=== PATIENT | male | born 1950 | race Caucasian/White ===

== ENCOUNTER → 2021-05-20 16:37 | Outpatient (CLI) | payer MEDICARE, OTHER, SELFPAY ==
--- NOTE | 2021-05-20 16:42 | DI.RAD.S_ITS ---
PROCEDURE: XR HAND LT MIN 3V INDICATIONS: left thumb TECHNIQUE: 3 views of the hand(s) acquired. COMPARISON: None. FINDINGS: Bones: No acute fracture identified. There are numerous interphalangeal marginal lucencies. Additional lucencies at the distal ulna, and carpus raising possibility of erosions. Severe CMC and triscaphe joint degeneration. Diffuse interphalangeal degenerative joint disease. Chronic appearing ossicle projects adjacent to the base of the middle finger proximal phalanx. Soft tissues: No suspicious soft tissue calcifications. IMPRESSION: No definite fracture identified. Diffuse osteoarthritis as above Numerous marginal lucencies suggestive of erosions. Please correlate clinically. If the patient's pain or other symptoms persist, consider further evaluation with MRI Dictated by: Joe Ash M.D. on 05/20/2021 at 17:16 Approved by: Joe Ash M.D. on 05/20/2021 at 17:18
== END ==
PROVIDERS: PCP Internal Medicine; Referring Provider Internal Medicine; Visit Provider Internal Medicine
DX: M19.042 Primary osteoarthritis, left hand (principal); M18.12 Unilateral primary osteoarthritis of first carpometacarpal joint, left hand
CPT/HCPCS: 73130

== ENCOUNTER → 2021-05-25 06:44 | Outpatient (CLI) | payer MEDICARE, OTHER, SELFPAY ==
[2021-05-25 08:06] LABS: Add Manual Diff / Slide Review NO; Basophils Absolute Auto 100 /uL (0-100); Basophils Percent Auto 1.1 % (0-2); Eosinophils Absolute Auto 200 /uL (0-450); Hematocrit 41.5 % (41-53); Lymphocytes Absolute Auto 1400 /uL (1100-4500); Lymphocytes Percent Auto 19.4 % (25-40); Mean Corpuscular HGB Conc 33.8 % (30-36); Mean Corpuscular Hemoglobin 29.4 PG (26-34); Monocytes Absolute Auto 700 /uL (0-900); Monocytes Percent Auto 9.1 % (3-14); Neutrophils Absolute Auto 5000 /uL (1500-7000); Neutrophils Percent Auto 67.4 % (50-75); Platelet Count 174 X10^3/uL (150-400); Red Blood Cell Count 4.77 X10^6/uL (4.5-5.9); Red Cell Distribution Width 13.5 % (11.6-14.8); White Blood Cell Count 7.5 X10^3/uL (4.5-11.0)
[2021-05-25 08:24] LABS: Alanine Aminotransferase 31 IU/L (<50); Albumin 4.6 g/dL (3.5-5.0); Albumin Globulin Ratio 1.5 (1.0-2.8); Alkaline Phosphatase 90 U/L (38-126); Aspartate Aminotransferase 29 IU/L (17-59); Bilirubin Total 0.7 mg/dL (0.2-1.3); Blood Urea Nitrogen 24 mg/dL (9-20); C-Reactive Protein Quant < 0.5 mg/dL (<1.0); Calcium 9.3 mg/dL (8.4-10.2); Carbon Dioxide 29 mmol/L (22-32); Chloride 105 mmol/L (98-107); Estimated Glomerular Filt Rate > 60.0 mL/min (>60); Globulin 3.1 g/dL (1.7-4.1); Glucose 91 mg/dL (80-110); HEMOLYSIS < 15 (0-50); Potassium 3.8 mmol/L (3.4-5.1); Sodium 140 mmol/L (137-145); Total Protein 7.7 g/dL (6.3-8.2)
[2021-05-25 08:39] LABS: Free T4, Direct Thyroxine 0.81 ng/dL (0.78-2.19)
[2021-05-25 08:43] LABS: Erythrocyte Sedimentation Rate 38 MM/HR (0-15)
[2021-05-25 08:52] LABS: Prostate Specific Antigen Scrn 0.831 ng/mL (0.1-4.0)
[2021-05-25 08:53] LABS: Thyroid Stimulating Hormone 2.09 uIU/mL (0.47-4.68)
== END ==
PROVIDERS: PCP Internal Medicine; Referring Provider Internal Medicine; Visit Provider Internal Medicine
DX: I10 Essential (primary) hypertension (principal); E78.2 Mixed hyperlipidemia; Z12.5 Encounter for screening for malignant neoplasm of prostate; R53.83 Other fatigue
CPT/HCPCS: 36415; 80053; 84439; 84443; 85025; 85651; 86140; G0103

== ENCOUNTER → 2022-07-07 10:20 | Outpatient (CLI) | payer MEDICARE, OTHER, SELFPAY ==
--- NOTE | 2022-07-07 10:23 | DI.RAD.S_ITS ---
PROCEDURE: XR HIP W PEL IF DONE RT 2V INDICATIONS: hip pain TECHNIQUE: AP pelvis with lateral view(s) of the right hip(s). COMPARISON: None. FINDINGS: Bones: No fractures or dislocations. Pelvic ring appears intact. Severe joint space narrowing of both hips. Bilateral hip joint spurring, subchondral sclerosis, right hip subchondral cystic change. Soft tissues: The visualized bowel gas pattern is normal. No suspicious soft tissue calcifications. IMPRESSION: Severe degenerative changes of both hips. Dictated by: Andrzej Lott M.D. on 07/07/2022 at 16:41 Approved by: Andrzej Lott M.D. on 07/07/2022 at 16:44
--- NOTE | 2022-07-07 10:23 | DI.RAD.S_ITS ---
PROCEDURE: XR KNEE RT 3V INDICATIONS: knee pain TECHNIQUE: 3 views of the knee were acquired. COMPARISON: None. FINDINGS: Bones: No fractures or dislocations. No suspicious bony lesions. Mild lateral compartment spurring. Mild-moderate medial and patellofemoral compartment narrowing and spurring. Soft tissues: No joint effusion. Chondrocalcinosis is present. IMPRESSION: 1. No acute fracture visualized. 2. Tricompartmental degenerative changes of the knee. 3. Chondrocalcinosis is present, a nonspecific finding that can be seen in the setting of pyrophosphate arthropathy, osteoarthritis, chronic repetitive trauma, hyperparathyroidism/renal osteodystrophy, or progressive systemic sclerosis. Dictated by: Andrzej Lott M.D. on 07/07/2022 at 16:37 Approved by: Andrzej Lott M.D. on 07/07/2022 at 16:40
[2022-07-07 12:31] LABS: Add Manual Diff / Slide Review NO; Basophils Absolute Auto 100 /uL (0-100); Basophils Percent Auto 0.9 % (0-2); Eosinophils Absolute Auto 100 /uL (0-450); Eosinophils Percent Auto 1.6 % (2-4); Hematocrit 40.9 % (41-53); Lymphocytes Absolute Auto 1400 /uL (1100-4500); Lymphocytes Percent Auto 18.1 % (25-40); Mean Corpuscular HGB Conc 34.1 % (30-36); Mean Corpuscular Hemoglobin 29.4 PG (26-34); Mean Corpuscular Volume 86.2 fL (80-100); Monocytes Absolute Auto 600 /uL (0-900); Monocytes Percent Auto 8.2 % (3-14); Neutrophils Absolute Auto 5600 /uL (1500-7000); Neutrophils Percent Auto 71.2 % (50-75); Platelet Count 185 X10^3/uL (150-400); Red Blood Cell Count 4.75 X10^6/uL (4.5-5.9); Red Cell Distribution Width 13.1 % (11.6-14.8); White Blood Cell Count 7.8 X10^3/uL (4.5-11.0)
[2022-07-07 12:48] LABS: Alanine Aminotransferase 27 IU/L (<50); Albumin 4.3 g/dL (3.5-5.0); Albumin Globulin Ratio 1.2 (1.0-2.8); Alkaline Phosphatase 97 U/L (38-126); Aspartate Aminotransferase 26 IU/L (17-59); BUN Creatinine Ratio 21.1 (6-22); Bilirubin Total 0.7 mg/dL (0.2-1.3); Blood Urea Nitrogen 16 mg/dL (9-20); C-Reactive Protein Quant < 0.5 mg/dL (<1.0); Calcium 9.1 mg/dL (8.4-10.2); Carbon Dioxide 32 mmol/L (22-32); Chloride 100 mmol/L (98-107); Cholesterol 124 mg/dL (140-199); Creatine Kinase 57 U/L (55-170); Estimated Glomerular Filt Rate > 60 mL/min (>60); Globulin 3.5 g/dL (1.7-4.1); Glucose 87 mg/dL (80-110); HDL Cholesterol 32 mg/dL (40-60); HEMOLYSIS < 15 (0-50); LDL Cholesterol Calculated 67 mg/dL (<100); Potassium 3.9 mmol/L (3.4-5.1); Sodium 141 mmol/L (137-145); Total Protein 7.8 g/dL (6.3-8.2); Triglycerides 124 mg/dL (35-150)
[2022-07-07 13:30] LABS: Erythrocyte Sedimentation Rate 14 MM/HR (0-15)
[2022-07-07 13:37] LABS: TSH w/ Reflex to FT4 1.27 uIU/mL (0.47-4.68)
== END ==
PROVIDERS: PCP Internal Medicine; Referring Provider Internal Medicine; Visit Provider Internal Medicine
DX: E78.2 Mixed hyperlipidemia (principal); I10 Essential (primary) hypertension; M11.261 Other chondrocalcinosis, right knee; M25.561 Pain in right knee; M25.551 Pain in right hip
CPT/HCPCS: 36415; 73502; 73562; 80053; 80061; 82550; 84443; 85025; 85651; 86140

== ENCOUNTER → 2022-09-28 08:24 | Outpatient (CLI) | payer MEDICARE, OTHER, SELFPAY ==
[2022-09-28 09:13] LABS: D Dimer 935 ng/ml (<500)
[2022-09-28 09:25] LABS: Alanine Aminotransferase 29 IU/L (<50); Albumin 4.4 g/dL (3.5-5.0); Albumin Globulin Ratio 1.3 (1.0-2.8); Alkaline Phosphatase 81 U/L (38-126); Aspartate Aminotransferase 26 IU/L (17-59); BUN Creatinine Ratio 22.2 (6-22); Bilirubin Total 0.7 mg/dL (0.2-1.3); Blood Urea Nitrogen 16 mg/dL (9-20); Carbon Dioxide 29 mmol/L (22-32); Chloride 102 mmol/L (98-107); Estimated Glomerular Filt Rate > 60 mL/min (>60); Globulin 3.5 g/dL (1.7-4.1); Glucose 95 mg/dL (80-110); HEMOLYSIS < 15 (0-50); Potassium 4.1 mmol/L (3.4-5.1); Sodium 142 mmol/L (137-145); Total Protein 7.9 g/dL (6.3-8.2)
[2022-09-28 09:28] LABS: Hemoglobin A1C% w Est Avg Glu 5.3 % (4.0-6.0)
== END ==
PROVIDERS: PCP Internal Medicine; Referring Provider Family Medicine; Visit Provider Family Medicine
DX: I10 Essential (primary) hypertension (principal); I87.2 Venous insufficiency (chronic) (peripheral)
CPT/HCPCS: 36415; 80053; 83036; 85379

== ENCOUNTER → 2022-11-07 06:36 | Outpatient (CLI) | payer MEDICARE, OTHER, SELFPAY ==
--- NOTE | 2022-11-07 06:37 | DI.ECHO.S_ITS ---
[facility] +---------+ : : [address] : : : : [id number] : : : : Phone: [phone]+ Echocardiogram Report + + :Name: NOLAN ASH Study Date: 11/07/2022 Height: 70 in : :[facility] ReadingLocation: Weight: 212 lb : : Gender: Male BSA: 2.1 m2 : :: 1950 Age: 72 yrs BP: 149/84 mmHg: :Reason For Study: ATRIAL FIBRILLATION : :Ordering Physician: WILY CAMPOSPerformed By: Renetta Vega : :Referring: WILY CAMPOS : + + Interpretation Summary 1) Normal left ventricular thickness, size, wall motion, and systolic function (EF 55-60%). 2) Normal right ventricular size and function. 3) No significant valvular abnormalities. 4) No prior Echo available for comparison. Procedure: A two-dimensional transthoracic echocardiogram with color flow and Doppler was performed. The study quality was technically adequate. There is no prior echocardiogram noted for this patient. The patient was in sinus bradycardia with heart rates between 58-67 bpm during the exam. Left Ventricle: The left ventricle is normal in size and wall thickness. The ejection fraction is estimated to be 55-60%. Left ventricular systolic function appears normal without focal wall motion abnormalities. Diastolic parameters suggest probable normal left ventricular diastolic function and normal filling pressures. Right Ventricle: The right ventricle is normal in size and function. Atria: The left atrial size is normal. Right atrial size is normal. There is no Doppler evidence for an interatrial shunt. Mitral Valve: The mitral valve is normal in structure and function. There is mild mitral regurgitation. Aortic Valve: The aortic valve is trileaflet. The aortic valve opens well. There is no aortic valve stenosis. No aortic regurgitation is present. Tricuspid Valve: The tricuspid valve is normal in structure and function. There is trace tricuspid regurgitation. Pulmonary artery pressures cannot be estimated because of the lack of a measurable TR jet velocity. Pulmonic Valve: The pulmonic valve leaflets are thin and pliable; valve motion is normal. There is mild pulmonic regurgitation. Great Vessels: The aortic root is normal size. The ascending aorta is at the upper limits of normal in size. The IVC is of normal diameter and collapses greater than 50% with a sniff. This suggests a low right atrial pressure of 3 mm Hg. Pericardium/ Pleura There is no pericardial effusion. There is an anterior echo-free space consistent with a fat pad. There is no pleural effusion. MMode/2D Measurements & Calculations LVIDd: 5.3 cm LVOT diam: 2.4 cm LVIDs: 3.4 cm Ao root diam: 3.6 cm FS: 35.7 % asc Aorta Diam: 3.9 cm EPSS: 1.1 cm IVSd: 0.87 cm LVPWd: 1.1 cm LV fraire. diameter/BSA (cm/m^2): 2.5 LV sys. diameter/BSA (cm/m^2): 1.6 LA A2 area: 22.9 cm2 RA long axis: 5.2 cm LA A4 area: 19.8 cm2 RA area: 16.8 cm2 LA length (vol): 5.5 cm RA vol: 46.0 ml LA vol: 70.6 ml RA : 21.5 ml/m2 LA vol index: 33.0 ml/m2 IVC diam: 1.2 cm RVD1 (basal): 3.6 cm RVD2 (mid): 2.7 cm TAPSE: 2.5 cm Doppler Measurements & Calculations Ao V2 max: 127.2 cm/sec LVOT Max Dwaine: 97.1 cm/sec Ao V2 mean: 93.9 cm/sec LV V1 max P.8 mmHg Ao max P.5 mmHg LV V1 VTI: 22.9 cm Ao mean P.8 mmHg KELSY(I,D): 3.5 cm2 Ao V2 VTI: 30.0 cm KELSY(V,D): 3.5 cm2 sev ratio: 0.76 KELSY indexed to BSA (cm^2/m^2): 1.6 MV E max dwaine: 59.5 cm/sec PA V2 max: 116.8 cm/sec MV A max dwaine: 56.6 cm/sec PA V2 mean: 82.4 cm/sec MV E/A: 1.1 PA mean P.0 mmHg Med Peak E' Dwaine: 7.9 cm/sec PA pr(Accel): 22.5 mmHg E/E' med: 7.5 Lat Peak E' Dwaine: 8.1 cm/sec E/E' lat: 7.3 E/e' average: 7.4 MV dec time: 0.28 sec SV(LVOT): 104.0 ml Reading Physician:02:57 PM
== END ==
PROVIDERS: PCP Internal Medicine; Referring Provider Family Medicine; Visit Provider Family Medicine
DX: I34.0 Nonrheumatic mitral (valve) insufficiency (principal); I37.1 Nonrheumatic pulmonary valve insufficiency; I87.2 Venous insufficiency (chronic) (peripheral); I10 Essential (primary) hypertension; R42 Dizziness and giddiness
CPT/HCPCS: 93306

== ENCOUNTER → 2024-01-31 13:30 | Outpatient (CLI) | payer MEDICARE, OTHER, SELFPAY ==
[2024-01-31 13:58] LABS: Add Manual Diff / Slide Review NO; Basophils Absolute Auto 100 /uL (0-100); Basophils Percent Auto 0.8 % (0-2); Eosinophils Absolute Auto 200 /uL (0-450); Eosinophils Percent Auto 2.2 % (2-4); Hematocrit 41.1 % (41-53); Hemoglobin 14.2 g/dL (13.5-17.5); Lymphocytes Absolute Auto 1700 /uL (1100-4500); Lymphocytes Percent Auto 21.7 % (25-40); Mean Corpuscular HGB Conc 34.6 % (30-36); Mean Corpuscular Hemoglobin 29.7 PG (26-34); Mean Corpuscular Volume 85.8 fL (80-100); Monocytes Absolute Auto 700 /uL (0-900); Monocytes Percent Auto 9.3 % (3-14); Neutrophils Absolute Auto 5100 /uL (1500-7000); Platelet Count 209 X10^3/uL (150-400); Red Blood Cell Count 4.79 X10^6/uL (4.5-5.9); White Blood Cell Count 7.7 X10^3/uL (4.5-11.0)
[2024-01-31 14:07] LABS: Hemoglobin A1C% w Est Avg Glu 5.5 % (4.0-6.0)
[2024-01-31 14:18] LABS: Alanine Aminotransferase 25 IU/L (<50); Albumin 4.5 g/dL (3.5-5.0); Albumin Globulin Ratio 1.5 (1.0-2.8); Alkaline Phosphatase 85 U/L (38-126); Aspartate Aminotransferase 28 IU/L (17-59); BUN Creatinine Ratio 26.3 (6-22); Bilirubin Total 0.7 mg/dL (0.2-1.3); Blood Urea Nitrogen 20 mg/dL (9-20); Calcium 9.1 mg/dL (8.4-10.2); Carbon Dioxide 30 mmol/L (22-32); Chloride 106 mmol/L (98-107); Cholesterol 107 mg/dL (140-199); Estimated Glomerular Filt Rate > 60 mL/min (>60); Glucose 85 mg/dL (80-110); HDL Cholesterol 35 mg/dL (40-60); HEMOLYSIS < 15 (0-50); LDL Cholesterol Calculated 45 mg/dL (<100); Potassium 3.9 mmol/L (3.4-5.1); Sodium 141 mmol/L (137-145); Total Protein 7.5 g/dL (6.3-8.2); Triglycerides 137 mg/dL (35-150)
[2024-01-31 14:46] LABS: TSH w/ Reflex to FT4 1.19 uIU/mL (0.47-4.68)
[2024-01-31 15:02] LABS: Vitamin B12 564 pg/mL (239-931)
== END ==
PROVIDERS: PCP Family Medicine; Referring Provider Family Medicine; Visit Provider Family Medicine
DX: E78.2 Mixed hyperlipidemia (principal); R73.01 Impaired fasting glucose; I10 Essential (primary) hypertension; Z11.59 Encounter for screening for other viral diseases
CPT/HCPCS: 36415; 80053; 80061; 82607; 83036; 84443; 85025; 86803

== ENCOUNTER → 2024-05-13 12:38 | Outpatient (CLI) | payer MEDICARE, OTHER, SELFPAY ==
--- NOTE | 2024-05-13 12:41 | EKG_ITS ---
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
[2024-05-13 13:35] LABS: Add Manual Diff / Slide Review NO; Basophils Absolute Auto 100 /uL (0-100); Basophils Percent Auto 0.7 % (0-2); Eosinophils Absolute Auto 200 /uL (0-450); Eosinophils Percent Auto 2.5 % (2-4); Hematocrit 40.7 % (41-53); Hemoglobin 14.3 g/dL (13.5-17.5); Lymphocytes Absolute Auto 1600 /uL (1100-4500); Lymphocytes Percent Auto 19.4 % (25-40); Mean Corpuscular HGB Conc 35.1 % (30-36); Mean Corpuscular Hemoglobin 30.5 PG (26-34); Mean Corpuscular Volume 86.9 fL (80-100); Monocytes Absolute Auto 800 /uL (0-900); Monocytes Percent Auto 9.8 % (3-14); Neutrophils Absolute Auto 5600 /uL (1500-7000); Neutrophils Percent Auto 67.6 % (50-75); Platelet Count 205 X10^3/uL (150-400); Red Blood Cell Count 4.69 X10^6/uL (4.5-5.9); Red Cell Distribution Width 13.7 % (11.6-14.8); White Blood Cell Count 8.3 X10^3/uL (4.5-11.0)
[2024-05-13 13:50] LABS: Hemoglobin A1C% w Est Avg Glu 5.3 % (4.0-6.0)
[2024-05-13 13:52] LABS: Albumin 4.3 g/dL (3.5-5.0); BUN Creatinine Ratio 23.4 (6-22); Blood Urea Nitrogen 18 mg/dL (9-20); Calcium 9.2 mg/dL (8.4-10.2); Carbon Dioxide 29 mmol/L (22-32); Chloride 104 mmol/L (98-107); Estimated Glomerular Filt Rate > 60 mL/min (>60); Glucose 86 mg/dL (80-110); HEMOLYSIS < 15 (0-50); Potassium 4.3 mmol/L (3.4-5.1); Sodium 140 mmol/L (137-145)
[2024-05-13 14:00] LABS: Prealbumin 31.9 mg/dL (17.6-36.0)
[2024-05-13 16:27] LABS: Vitamin D 25 Hydroxy (D3) 15.4 ng/mL (30.0-100.0)
== END ==
PROVIDERS: PCP Family Medicine; Referring Provider Orthopaedic Surgery Adult Reconstructive Orthopaedic Surgery; Visit Provider Orthopaedic Surgery Adult Reconstructive Orthopaedic Surgery
DX: Z01.818 Encounter for other preprocedural examination (principal); E55.9 Vitamin D deficiency, unspecified; R73.9 Hyperglycemia, unspecified; R77.0 Abnormality of albumin; Z01.812 Encounter for preprocedural laboratory examination
CPT/HCPCS: 36415; 80048; 82040; 82306; 83036; 84134; 85025; 93005

== ENCOUNTER 2024-06-28 06:04 | Day surgery (SDC) | payer MEDICARE, OTHER, SELFPAY ==
[2024-06-26 09:40] VITALS: BMI 31.2
[2024-06-28] VITALS (12 sets, daily range): BP systolic 93–159; BP diastolic 48–83; PULSE 57–88; RESP 12–18; TEMP 36.1–36.4; O2SAT 87–100; BMI 31.2
--- NOTE | 2024-06-28 | DI.RAD.S_ITS ---
PROCEDURE: XR HIP W PEL IF DONE RT 2V INDICATIONS: RT HIP ATNERIOR TECHNIQUE: AP pelvis and lateral view of the hip acquired. COMPARISON: [facility], [place], XR HIP W PEL IF DONE RT 2V, 06/28/2024, 9:08. FINDINGS: Bones: Patient is status post right hip arthroplasty, with hardware components in expected positions. The hip joint appears congruent. The visualized bony structures appear intact. Moderate to severe degenerative changes of the left hip. Soft tissues: Overlying postoperative changes are noted. No suspicious soft tissue densities. IMPRESSION: Expected post-operative appearance of a hip arthroplasty. Approved by: Hedy Abreu M.D.,Ph.D. on 06/29/2024 at 1:34
--- NOTE | 2024-06-28 06:00 | DI.RAD.S_ITS ---
PROCEDURE: XR HIP W PEL IF DONE RT 2V INDICATIONS: josué TECHNIQUE: 6 intraoperative fluoroscopic images were acquired. COMPARISON: [facility], , XR HIP W PEL IF DONE RT 2V, 07/07/2022, 10:55. FINDINGS: Six intraoperative images of right hip arthroplasty demonstrate prosthetic elements in appropriate position. IMPRESSION: Intraoperative images demonstrate right hip total arthroplasty. Please see separately dictated operative report for full details. Approved by: Hedy Abreu M.D.,Ph.D. on 06/29/2024 at 4:06
[2024-06-28] MEDS: ACETAMINOPHEN 325 MG TABLET 975 MG PO (07:05)
[2024-06-28] MEDS: MELOXICAM 7.5 MG TABLET 15 MG PO (07:05)
[2024-06-28] MEDS: LACTATED RINGERS 1,000 ML 42 ML IV (07:07)
--- NOTE | 2024-06-28 07:18 | SUR.OPER ---
Patient supine on padded [place] table, one arm on padded arm board at <90, other arm padded and secured with tape across patient's chest, both legs secured in padded traction boots and positioned per surgeon, padded post at patient's groin, pressure points checked and padded.
[2024-06-28] MEDS: FAMOTIDINE 20 MG/2 ML VIAL IV (07:34)
--- NOTE | 2024-06-28 07:38 | PM.PREOP ---
Pre-operative Note Interval Note History & Physical reviewed/Exam performed by Physician: Yes Changes to H&P: No
[2024-06-28] MEDS: CEFAZOLIN 2 GM/100 ML PREMIX 100 ML IV ×2 (07:50→15:48)
[2024-06-28] MEDS: TRANEXAMIC ACID 1,000 MG VIAL 2000 MG INJ ×2 (08:07→09:44)
[2024-06-28] MEDS: ROPIVACAINE/EPI/CLONIDINE/KET 50 ML SYRINGE INJ (08:32)
[2024-06-28] MEDS: ALBUMIN HUMAN 12.5 GM/250 ML VIAL IV (09:50)
--- NOTE | 2024-06-28 09:57 | P.OP_ITS ---
Operative Date/Time/Diagnoses Date of procedure: 06/28/24 Pre-op diagnosis: Right hip osteoarthritis Post-op diagnosis: same Procedure & Clinicians Procedure: Right total hip arthroplasty Same procedure as scheduled: Yes Surgeon: Jay Jay Howard Napper Tender: Jessica Friend Anesthesia Type: General and Local Operative Notes Estimated Blood Loss (mL): 500 Procedure in detail: Right Uncemented Direct Anterior Depuy Total Hip Arthroplasty: Implants: * Brenham Gription size 56 cup? * Actis femoral stem size 6 high offset? * 36 mm +12 ceramic femoral head? Procedure Summary: This 74-year-old male patient was previously scheduled for bilateral total hip arthroplasties however due to a lack of availability of cell Saver for his procedure and discovering that autologous blood banking requires a large o [id number] expense for the patient I recommended performing his procedures in a rapid staged fashion. I proceeded with the right side today and will proceed with the left side in the near future. Intraoperatively today he had a very large TFL and I initially released this off the pelvis during my approach to avoid excessive soft tissue tension. Additionally a conjoined tendon release was required. During the broaching process I found that a size 6 broach sank significantly deeper than I had anticipated based on my femoral neck cut. I attempted to upsized to a size 7 broach however I found that this sat significantly proud relative to the area at which I had calcar planed and would therefore not have had collar contact. I therefore sink the size 6 broach deeper and upsized the head. I initially trialed with a +8.5 head but I found that this dislocated with 120? of external rotation. I upsized to a +12 head which resolved that instability with maximum external rotation. He was long on the operative side however given my plan to return in the very near future for the left side had planned to iatrogenically lengthened him today and had discussed this with him in detail preoperatively. Procedure in Detail: This patient was seen preoperatively and evaluated for hip pain which was refractory to numerous nonoperative treatment modalities. Their hip pain correlated with radiographic changes demonstrating significant degeneration in the hip joint. The risks and benefits of continued nonoperative management versus operative management were discussed at length and all of the patient?s questions were answered. Additional educational materials providing further details beyond our discussion in clinic were provided via a publicly available patient education video which included the incidence of medical complications associated with total hip arthroplasty, reasons for revision following total hip arthroplasty, and patient satisfaction rates following total hip arthroplasty. That video can be accessed at [email or web address] . With this understanding of the risks inherent to the procedure, the patient elected to move forward with operative management. Following preoperative optimization, the patient was scheduled for surgery. The patient was met in the preoperative holding area the day of the procedure and all questions were answered. The patient?s nares were swabbed with betadine in order to decolonize them from MRSA. Informed consent was signed and the right limb was marked with indelible ink.? The patient was brought back to the operating room where anesthesia was induced. The patient was transferred to the [place] table and all bony prominences were padded. The operative site was prepped and draped in the usual sterile fashion. Prior to incision, tranexamic acid and cefazolin were administered. Operative templating images were displayed demonstrating the anticipated implant sizes and correct operative extremity. A timeout procedure was performed verifying the patient?s identity, medical comorbidities, allergies, relevant medications, anesthesia type and the surgical plan. All present were in agreement. The assistance of a physician bilingual legal assistant was required for positioning, room setup, soft tissue retraction and wound closure. Without this assistance, the procedure would have been significantly more challenging and time consuming.?? A direct anterior approach to the hip was utilized. This was performed with a longitudinal incision through a Heuter interval. The incision was planned 2 cm distal and 2 cm lateral to the ASIS extending towards the lateral patella, in line with the muscle body of the TFL. Following incision, the subcutaneous tissue was dissected while taking care to avoid injury to the lateral femoral cutaneous nerve. The fascia overlying the TFL was identified by dissecting off the overlying fat and identifying perforating vessels to the TFL. The TFL fascia was incised and dissected away from the medial border of the TFL. A cobra retractor was placed over the superior femoral neck between the abductors and the hip capsule and used to reflect the TFL laterally. A [place] self-retainer was then placed in the distal aspect of the wound between the TFL and the rectus femoris. This was tensioned to open up the direct anterior interval and the lateral circumflex vessels were identified and coagulated using electrocautery. The floor of the TFL fascia was incised, exposing the pericapsular fat overlying the hip capsule. A second cobra retractor was placed on the inferior femoral neck. A double-bent soft tissue retractor was placed on the anterior wall of the acetabulum and used to tension the reflected head of rectus femoris, which was then released in order to limit soft tissue tension. A capsulotomy was made in the midline of the anterior hip capsule in line with the femoral neck ending at the vastus tubercle. The double-bent retractor was removed in order to limit the amount of time that a soft tissue retractor remained on the anterior wall and protect the femoral nerve. Tag stitches were placed in the superior and inferior leaflets of the hip capsule. An Buzz soft tissue retractor was introduced over the tag stitches and tensioned in the interval between the rectus femoris and the TFL in order to retract and protect those muscles. I released the TFL off of the iliac wing by retracting proximally and identifying the tendon attachment and releasing approximately 2 cm of the anterior tendon off of the pelvis with a flap to be repaired later in the procedure. The cobra retractors were replaced intracapsularly, with one over the superior neck in the pocket created by the base of the greater trochanter and the other on the femoral head. The capsulotomy was extended laterally to the base of the greater trochanter and medially to the lesser trochanter. This required externally rotating the hip. Once the lesser trochanter had been identified, a neck cut was planned according to measurements from preoperative templating. A ruler was cut at the length measured between the superior aspect of the lesser trochanter and the collar of the prosthesis. This line was extended towards the inferior aspect of the lateral cobra retractor to plan a cut which would leave minimal residual femoral neck laterally. The neck was cut at 60 degrees of external rotation along that line. A second cut was performed to remove a large napkin ring and facilitate head extraction. The napkin ring cut and femoral head were removed.?? A broad anterior wall retractor was placed between the labrum and the anterior capsule so that the anterior capsule would prevent capturing and pinching the femoral nerve anteriorly. An additional retractor was placed on the posterior wall. External rotation and traction were applied through the [place] table so that the cut surface of the femoral neck would not restrict access to the acetabulum. The labrum was excised sharply and the pulvinar was excised with electrocautery to limit bleeding from branches of the obturator artery. Acetabular reamers were selected based on preoperative templating and measurements of the excised femoral head. These were introduced into the acetabulum. Fluoroscopy was utilized to replicate a standing AP pelvis radiograph by centering over the pelvis, rotating until there was appropriate symmetry between the obturator foramen, and introducing caudal tilt to match the position of the pubic symphysis relative to the sacrococcygeal junction according to the patient?s anatomy. Fluoroscopy was utilized to ensure appropriate reaming depth. Once satisfied with the reaming depth corresponding to the preoperative template and the pinch fit between the columns, an appropriate sized acetabular cup was selected which would provide 1 mm of press-fit. This cup was introduced and manipulated until appropriate abduction and anteversion angles were obtained with careful attention to appropriate abduction and anteversion angles as evaluated by the position of the cup relative to the anterior and posterior gutierrez of the acetabulum and the AP fluoroscopy which recreated the patient?s standing radiograph. The cup was impacted into place. Peripheral osteophytes were removed. The acetabular liner was then placed with care to ensure locking of the locking mechanism.? Attention was then turned to the femur. All retractors were removed, traction was released, a retractor was placed in the interval between the hip capsule and the gluteus minimus, and the hip was externally rotated to 90 degrees. Traction was applied through the [place] table to tension the lateral capsule and this was released using electrocautery. Traction was released and a [place] hook was placed posteriorly around the proximal femur at the level of the vastus ridge. The table height was lowered in order to restrict the tension on the anterior structures during hip hyperextension to limit the risk of femoral nerve palsy. With traction off and the hip at 90 degrees of external rotation, the hip was hyperextended and adducted while manually elevating the femur away from the acetabulum with the [place] hook to ensure it would not be caught behind the greater trochanter. An asymmetric retractor was placed over the calcar and a broad double-pronged retractor was placed over the greater trochanter. The tag stitch capturing the lateral leaflet of the capsule was moved to the medial side, leaving the conjoined and piriformis tendons isolated in the face of the greater trochanter. The hip was externally rotated and elevated. A release of the conjoined tendon was necessary in order to obtain adequate exposure for broaching. The canal was opened with an opening broach and a rasp was used to remove cancellous bone. A rongeur was used to remove the residual lateral bone at the base of the greater trochanter to avoid placing the stem in varus. The femur was then broached to the appropriate sized stem yielding good rotational fit and fill of the canal as well as appropriate version of the stem trial. Neck and head trials were placed, all retractors were removed and the hip was returned to neutral abduction and extension. I then reduced the hip. Initial trialing was performed with a size 6 broach, a high offset neck and a +8.5 head. I initially manually externally rotated the hip and found dislocation when rotating past 120? so I upsized to a +12 head trial which resolved the instability. I then locked the hip in 45 degrees of external rotation and dropped it to the floor with traction off which demonstrated no instability. An AP pelvis fluoroscopic image matching the preoperative standing radiograph with both lesser trochanters visible and both hips in 40 degrees of external rotation demonstrated that the operative site was long relative to the contralateral side and that offset was appropriate. AP and lateral hip fluoroscopic images were obtained to evaluate the broach size which demonstrated good canal fill. The hip was dislocated and I returned to the broaching position. Based on my evaluation during initial trialing I planned to place the definitive implants. The definitive stem was placed and the trunnion was cleaned and dried. I placed a ceramic head onto the trunnion and impacted it into place on the Baer taper.?? All retractors were removed and the hip was reduced. A dilute mixture of betadine and peroxide was used to bathe the soft tissues during final fluoroscopic assessment. Appropriate component positioning was confirmed on an AP pelvis radiograph with the operative and nonoperative legs in 40 degrees of external rotation, evaluating leg length and offset. Appropriate stem fill was evaluated on AP and lateral hip radiographs. No fractures were identified on these radiographs. There was no hip instability with maximum (125 degrees) external rotation as well as a 45 degree drop test. The hip was copiously irrigated with pulse lavage. The capsule was closed with absorbable interrupted suture. The TFL fascia was closed with barbed suture while carefully protecting the lateral femoral cutaneous nerve from entrapment. A mixture of Ropivacaine, Epinephrine, Clonidine and Toradol was infiltrated throughout the soft tissues. The skin was closed with 2-0 and 3-0 sutures. Surgical glue was applied and a soft dressing was placed.??The sponge, instrument and needle counts were reported as being correct at the end of the case.??No obvious complications occurred. The patient was transferred from the [place] table back to a stretcher. The patient emerged from anesthesia without difficulty and was taken to the PACU in a stable condition.? Plan for aftercare: * Anterior hip precautions * Weightbearing as tolerated * Aspirin 81 twice per day for DVT prophylaxis * Anticipate discharge home later today or tomorrow morning * Change into normal clothes upon arrival on the hospital floor * Mobilize in the halls as much as is logistically possible. If physical therapy is unavailable for mobilization, then patient should mobilize with nursing staff * Multimodal pain regimen with no IV opioids ordered * Apply ice machine to operative hip. Ensure that sufficient ice is in the chamber for the pad to remain cold * Follow up at [facility] in 2 weeks * Detailed postoperative instructions available at [email or web address]
[2024-06-28] MEDS: OXYCODONE IR 5 MG TABLET PO (11:11)
[2024-06-28] MEDS: LACTATED RINGERS 1,000 ML 100 ML IV ×3 (12:11→15:54)
[2024-06-28] MEDS: ACETAMINOPHEN 325 MG TABLET 650 MG PO ×2 (12:15→16:39)
[2024-06-28] MEDS: IBUPROFEN 600 MG TABLET PO ×2 (12:15→16:41)
--- NOTE | 2024-06-28 13:50 | PT.IIE ---
Current Diagnoses Unilateral primary osteoarthritis, right hip (06/28/24) Surgery Performed Operation Date: 06/28/24 07:45 Actual Procedures p Total Hip Arthroplasty/Anterior Approach(Right) - Jay Jay Howard MD Surgical History (Last Reviewed 07/28/21 @ 14:54 by Jose Wooten MD) Anesthesia Status post third molar tooth extraction (~1982) Medical History (Last Updated 10/25/23 @ 09:29 by Blaire Rich DO) Encounter for subsequent annual wellness visit (AWV) in Medicare patient Essential hypertension Mixed hyperlipidemia Venous insufficiency Physical Therapy Inpatient Evaluation/Re-Eval M1 PT/OT-IP Prior Functional Status Start: 06/28/24 15:57 Freq: NEEDED Status: Active Protocol: Document 06/28/24 13:50 AB (Rec: 06/28/24 16:27 AB [id number]) Medical Review Prior Functional Status Medical History Reviewed Yes Communication able to make needs known; slow to respond to questions Mobility and Gait pt stated that he was independent wtih all mobilities and ambulation without AD Social History Household Members spouse Living Arrangements House Number of Floors (Floors) One Floor Number of Stairs To Enter/Railing? 2 steps without rails to enter from the front ramp to enter from the garage but has to walk farther at least 50 ft Home Environment High Toilet,Walk in Shower Home Equipment Front Wheel Walker,Straight Cane,Shower Seat without Backrest,Hand Held Shower,Grab Bars In Shower M2 PT-IP Current Condition Start: 06/28/24 15:57 Freq: NEEDED Status: Active Protocol: Document 06/28/24 13:50 AB (Rec: 06/28/24 16:27 AB [id number]) Physical Therapy Current Condition Current Condition Evaluation Date 06/28/24 Treatment Diagnosis s/p R PRIYA anterior; difficulty in walking Onset Date 06/28/24 M3 PT-IP Subjective Start: 06/28/24 15:57 Freq: NEEDED Status: Active Protocol: Document 06/28/24 13:50 AB (Rec: 06/28/24 16:27 AB [id number]) Subjective Physical Therapy Visit Type Type Initial Evaluation Visit Start Time 13:50 Visit Stop Time 15:50 Number of ORNAMENTAL BRICK INSTALLER Visits 0 Physical Therapy Visit Comments Patient Comments agreeable to do PT; wants to go home today Therapy Pain Assessment Pain When Pain Assessed At Rest Pain Present Pain Present Pain Reported Location right hip Intensity 5 Scale Used Numeric (0 - 10) Pain Management Techniques Apply Cold,Modification of Treatment,Re-positioning, Timing of Activity with Medications M4 PT-IP Mobility and Gait Start: 06/28/24 15:57 Freq: NEEDED Status: Active Protocol: Document 06/28/24 13:50 AB (Rec: 06/28/24 16:27 AB [id number]) PT-Bed Mobility Assessment Supine to Sit Supine to Sit Minimal Assistance Sit to Supine Sit to Supine Standby Assistance PT-Transfer Assessment Sit to and From Stand Sit to and from Stand Minimal Assistance,Moderate Assistance,1 Person Assistance ,Use of Upper Extremities Equipment Transfer Assistive Device Gait Belt,Front Wheeled Walker Orthotic/Prosthetic Devices or Brace: No Transfers Transfer Destination Chair Transfer Technique ambulated Transfer Ability Level of Assist Minimal Assistance,1 Person Assistance,Use of Upper Extremities Comments Mobility Comments pt supine in bed and agreeable to do PT. pt wants to go home today. obtained PLOF and home set up. spouse present during PT session. educated pt and spouse regarding R hip anterior precautions. postop folder provided and reviewed contents . BP in supine: 132/81. pt slow to respond to instructions. pt completed supine to sit min A to move RLE over. able to sit on EOB SBA. pt completed sit to stand mod A and max cues. ambulated to the chair using FWW min A and max cues for hip precautions. caregiver training conducted. educated spouse on how to use safety belt. spouse needed repetitions to be be able to don safety belt. towards the end, pt was able to put safety belt on himself but still requires cues. educated spouse on how to assist pt. pt complete sit to stand with spouse assisting but pt with a LOB and (+) knee buckling with PT providing mod to max A to pt to steady. instructed pt to sit back on chair. educated pt on safety. pt completed sit to stand again min to mod A and spouse assist and PT CGA for safety. spouse unable to provide pt cues for precautions and safety. PT then provided. informed spouse to instruct pt and provide cues since pt is not consistent with following his hip precautions but spouse continues not to cue pt. pt ambulated to EOB. pt stated that he really wants to go home. educated pt and spouse on how to do stair climbing. pt with 2 steps without rails to enter the house. pt completed up/down platform step using SPC + DIRECTOR MACHINE max A 1-2 and max cues. spouse then assisted pt but PT also assisted on the pt at the same time. spouse unable to cue pt and PT reminded pt on safety and techniques. pt ambulated back to the room using FWW min A and cues and sat on the EOB. completed sit to supine SBA. positioned pt on the chair. call light and table placed within reach. BP: 118/73 Gait Assessment Gait Gait Assistance Required: Minimum Assistance Distance (Feet) 12 Able to Maintain Weight Bearing Status Yes During Gait Assistive Devices Assistive Device Gait Belt,Front Wheeled Walker Orthotic/Prosthetic Devices or Brace: No Gait Deviations General Gait Pattern Antalgic,Decreased Feet Clearance Factors Limiting Gait Function Factors Limiting Gait Function Decreased Activity Tolerance, Decreased Strength,Difficulty Following Directions,Limited Range of Motion,Pain,Poor Balance,Poor Safety Awareness Stair Climbing Assessment Evaluation Level of Assist On Stairs Maximal Assistance,1 Person Assistance,2 Person Assistance Devices Stair Climbing Assistive Devices Straight Cane Technique/Endurance Stair Climbing Direction Ascend and Descend Stair Climbing Technique Step to Step Number of Steps Climbed 1 Query Text: Stair Climbing Set # Repetitions (reps) 2 Comments Stair Climbing Comments pls refer to mobility section for details PT-Balance Assessment Sitting Balance and Reactions Static Sitting Balance Ability Good Dynamic Sitting Balance Ability Good Standing Balance and Reactions Static Standing Balance Ability Fair Dynamic Standing Balance Ability Fair Device Used FWW M5 PT-IP Objective Assessments Start: 06/28/24 15:57 Freq: NEEDED Status: Active Protocol: Document 06/28/24 13:50 AB (Rec: 06/28/24 16:27 AB [id number]) Orientation Orientation/Cognition Level of Alertness Alert Orientation Name,Place,Situation Language Function Ability Hard of Hearing Safety Awareness Decreased Safety Awareness Memory Description Short Term Impaired Gross Range of Motion Lower Extremity ROM Assessment Within Functional Limits Impairments c/o R hip pain limiting movement Strength Lower Extremity Strength Assessment Right Impaired Hip 3+/5 Knee 3+/5 Muscle Tone Muscle Tone WNL Yes M6 PT-IP Treatment Start: 06/28/24 15:57 Freq: NEEDED Status: Active Protocol: Document 06/28/24 13:50 AB (Rec: 06/28/24 16:27 AB [id number]) Physical Therapy Treatment Exercises Exercises Heel Slides Education Education Provided Precautions,Weight Bearing Status,Post-Op Packet,Safety M7 PT-IP Assessment and Plan Start: 06/28/24 15:57 Freq: NEEDED Status: Active Protocol: Document 06/28/24 13:50 AB (Rec: 06/28/24 16:27 AB [id number]) PT Summary Assessment and Plan Potential Rehabilitation Potential Fair Status of Condition at Evaluation Evolving Summary Impairments Pain,ROM,Strength,Balance, Coordination,Sensation,Tone, Cognition,Bed Mobility, Transfers,Gait,Activity Tolerance Assessment Summary pt is a 74 y/o M s/o R PRIYA anterior approach POD 0. pt with R hip anterior precautions and is WBAT. pt requiring min to mod A for mobility using FWW but needed max A x 1-2 for stair climbing . conducted caregiver training with spouse but needs further training. spouse unable to manage safety belt and instruct pt during mobility for his hip precautions and techniques for safety. caregiver training set up for tomorrow at 9 am. will continue to assess. Goals Bed Mobility Goal Independent Transfer Goal Standby Assistance,Front Wheeled Walker Gait Goal Standby Assistance,Front Wheel Walker Gait Distance 150 Other Goals improve transfers and ambulation using FWW mod I ~ 200 ft up/down 2 steps using SPC+ DIRECTOR MACHINE CGA Days to Meet Goals 5 Frequency of Treatment Frequency Of Treatment Twice a Day Treatment Plan Physical Therapy Treatment Plan Bed Mobility Training,Transfer Training,Gait Training, Therapeutic Exercise,Balance Retraining,Post Op Education, Discharge Planning,Hot or Cold Pack,Neuromuscular Re-ed, Coordination Retraining,Manual Therapy Precautions Anterior Hip Precautions No Hip Extension,No Hip External Rotation Weight Bearing Status Weight Bearing Status Weight Bear as Tolerated Allowed Weight Bearing Amount (enter % RLE WBAT or #) (%) Recommendations To Nursing Amount of Assist Needed 1 Person Assist Discharge Recommendations PT Discharge Recommendations Home with Assistance,Home Health,Outpatient PT Transportation Needs at Discharge Private Vehicle
[2024-06-28] MEDS: ATORVASTATIN 20 MG TABLET 80 MG PO (20:54)
[2024-06-28] MEDS: DOCUSATE 100 MG CAPSULE PO (20:54)
[2024-06-28] MEDS: ASPIRIN EC 81 MG TABLET PO (20:54)
[2024-06-29] MEDS: CEFAZOLIN 2 GM/100 ML PREMIX 100 ML IV (01:25)
[2024-06-29] MEDS: ACETAMINOPHEN 325 MG TABLET 650 MG PO ×2 (01:27→05:50)
[2024-06-29] MEDS: IBUPROFEN 600 MG TABLET PO (01:28)
[2024-06-29 06:32] LABS: Hematocrit 31.7 % (41-53); Hemoglobin 11.1 g/dL (13.5-17.5)
[2024-06-29 08:00] VITALS: BP 102/55; PULSE 64; RESP 18; TEMP 37.2; O2SAT 98
--- NOTE | 2024-06-29 09:00 | PT.IPTN ---
Current Diagnoses Unilateral primary osteoarthritis, right hip (06/28/24) Surgery Performed Operation Date: 06/28/24 07:45 Actual Procedures p Total Hip Arthroplasty/Anterior Approach(Right) - Jay Jay Howard MD Physical Therapy Treatment Note M2 PT-IP Current Condition Start: 06/28/24 15:57 Freq: NEEDED Status: Active Protocol: Document 06/28/24 13:50 AB (Rec: 06/28/24 16:27 AB [id number]) Physical Therapy Current Condition Current Condition Evaluation Date 06/28/24 Treatment Diagnosis s/p R PRIYA anterior; difficulty in walking Onset Date 06/28/24 M3 PT-IP Subjective Start: 06/28/24 15:57 Freq: NEEDED Status: Active Protocol: Document 06/29/24 09:30 TS (Rec: 06/29/24 09:41 TS [id number]) Subjective Physical Therapy Visit Type Type Treatment Note Visit Start Time 09:00 Visit Stop Time 09:10 Number of TRANSFORMER STOCK CLERK Visits 1 Physical Therapy Visit Comments Patient Comments Pt found stadning with no AD in room, dressed and ready for d/c. He is agreeable to PT. Therapy Pain Assessment Pain When Pain Assessed During Mobility Pain Present Pain Present Pain Reported M4 PT-IP Mobility and Gait Start: 06/28/24 15:57 Freq: NEEDED Status: Active Protocol: Document 06/29/24 09:30 TS (Rec: 06/29/24 09:41 TS [id number]) PT-Transfer Assessment Equipment Transfer Assistive Device Gait Belt,Front Wheeled Walker Comments Mobility Comments Pt recalled 2/2 hip precautions. Pt stands in room with no AD. He ambulates with FWW ~100'SBA with step to gait. He performs steps x2 with single rail assist and cues for step sequencing. Pt was left in room, all needs met. Gait Assessment Gait Gait Assistance Required: Standby Assistance Distance (Feet) 100 Able to Maintain Weight Bearing Status Yes During Gait Assistive Devices Assistive Device Gait Belt,Front Wheeled Walker Orthotic/Prosthetic Devices or Brace: No Gait Deviations General Gait Pattern Antalgic,Decreased Feet Clearance Factors Limiting Gait Function Factors Limiting Gait Function Decreased Activity Tolerance, Decreased Strength,Difficulty Following Directions,Limited Range of Motion,Pain,Poor Balance,Poor Safety Awareness Stair Climbing Assessment Evaluation Level of Assist On Stairs Contact Guard Assistance,1 Person Assistance Devices Stair Climbing Assistive Devices Right Railing Technique/Endurance Stair Climbing Direction Ascend and Descend Stair Climbing Technique Step to Step Number of Steps Climbed 2 PT-Balance Assessment Sitting Balance and Reactions Static Sitting Balance Ability Good Dynamic Sitting Balance Ability Good Standing Balance and Reactions Static Standing Balance Ability Fair Dynamic Standing Balance Ability Fair Device Used FWW M5 PT-IP Objective Assessments Start: 06/28/24 15:57 Freq: NEEDED Status: Active Protocol: Document 06/28/24 13:50 AB (Rec: 06/28/24 16:27 AB [id number]) Orientation Orientation/Cognition Level of Alertness Alert Orientation Name,Place,Situation Language Function Ability Hard of Hearing Safety Awareness Decreased Safety Awareness Memory Description Short Term Impaired Gross Range of Motion Lower Extremity ROM Assessment Within Functional Limits Impairments c/o R hip pain limiting movement Strength Lower Extremity Strength Assessment Right Impaired Hip 3+/5 Knee 3+/5 Muscle Tone Muscle Tone WNL Yes M6 PT-IP Treatment Start: 06/28/24 15:57 Freq: NEEDED Status: Active Protocol: Document 06/29/24 09:30 TS (Rec: 06/29/24 09:41 TS [id number]) Physical Therapy Treatment Education Education Provided Precautions,Weight Bearing Status,Post-Op Packet,Safety M7 PT-IP Assessment and Plan Start: 06/28/24 15:57 Freq: NEEDED Status: Active Protocol: Document 06/29/24 09:30 TS (Rec: 06/29/24 09:41 TS [id number]) PT Summary Assessment and Plan Potential Rehabilitation Potential Fair Summary Impairments Pain,ROM,Strength,Balance, Coordination,Sensation,Tone, Cognition,Bed Mobility, Transfers,Gait,Activity Tolerance Progress Towards Goals Progressing Toward Goals Assessment Summary Estevan is making progress with his mobility. He progressed his gait to ~100 SBA with use of FWW. Pt ambulates in room with no AD, recommended pt continue to use FWW. He contiues to perform steps with decreased assist this session . PT is recommending home with assist. Goals Bed Mobility Goal Independent Transfer Goal Standby Assistance,Front Wheeled Walker Gait Goal Standby Assistance,Front Wheel Walker Gait Distance 150 Other Goals improve transfers and ambulation using FWW mod I ~ 200 ft up/down 2 steps using SPC+ CHILDREN'S COUNSELOR CGA Days to Meet Goals 5 Frequency of Treatment Frequency Of Treatment Twice a Day Treatment Plan Physical Therapy Treatment Plan Bed Mobility Training,Transfer Training,Gait Training, Therapeutic Exercise,Balance Retraining,Post Op Education, Discharge Planning,Hot or Cold Pack,Neuromuscular Re-ed, Coordination Retraining,Manual Therapy Precautions Anterior Hip Precautions No Hip Extension,No Hip External Rotation Weight Bearing Status Weight Bearing Status Weight Bear as Tolerated Allowed Weight Bearing Amount (enter % RLE WBAT or #) (%) Recommendations To Nursing Amount of Assist Needed 1 Person Assist Discharge Recommendations PT Discharge Recommendations Home with Assistance, Outpatient PT Transportation Needs at Discharge Private Vehicle
--- NOTE | 2024-06-29 09:06 | P.DS_ITS ---
History of Present Illness History of Present Illness Date Patient Seen: 06/29/24 Time Patient Seen: 09:06 Chief complaint: Hip pain Narrative: Patient is having mild hip pain. He has been up walking in his room. Otherwise without complaints. Discharge Providers Provider Discharge Date: 06/29/24 Primary care physician: Blaire Rich DO Consults: 06/28/24 06:00 Consult to Anesthesiology Routine Comment: Consulting Provider: Anesthesiologist Reason for consultation: Regional block for post operative pain control 06/28/24 11:42 Consult to Discharge Planning Routine Comment: Consult to Physical Therapy Evaluate & Treat Comment: Physician Instructions: post op PRIYA protocol Discharge provider: Celestino Lanier PA-C Summary Hospital Course Discharge Diagnosis: Right hip osteoarthritis Hospital Course: Right total hip arthroplasty Same procedure as scheduled: Yes Surgeon: Jay Jay Howard Injection Molding Machine Tender: Jessica Friend Anesthesia Type: General and Local Operative Notes Estimated Blood Loss (mL): 500 Procedure in detail: Right Uncemented Direct Anterior Depuy Total Hip Arthroplasty: Implants: * Nucla Gription size 56 cup? * Actis femoral stem size 6 high offset? * 36 mm +12 ceramic femoral head? Patient admitted for the above-mentioned procedure. Patient consented to the same. Patient underwent right uncemented direct anterior total hip arthroplasty June 28, 2024. Patient back in his room recovering well as in stable condition. Patient has been mobilizing in his room. Patient has his pain well controlled. He will be discharged home today after physical therapy. Status at Discharge Cognitive/behavioral status at discharge: at baseline, oriented Functional status at discharge: uses cane/walker Overall status at discharge: patient is progressing back to baseline Exam Vital Signs (past 8 hours): - 06/29/24 08:00 Temperature 98.9 F Pulse Rate 64 Respiratory Rate 18 Blood Pressure 102/55 L Pulse Oximetry 98 Oxygen Delivery Method Room Air Oxygen Flow Rate 0 Narrative Exam Narrative: 74-year-old male walking in his room in no acute distress. Dressing is clean, dry and intact. Const General: cooperative and comfortable Nutritional Appearance: average body habitus Objective Labs 06/29/24 05:40 Labs: Laboratory Results - last 24 hr 06/29/24 05:40 Hgb 11.1 L Hct 31.7 L PFSH Medical History Encounter for subsequent annual wellness visit (AWV) in Medicare patient Venous insufficiency Essential hypertension Mixed hyperlipidemia Surgical History Anesthesia Status post third molar tooth extraction (~1982) Family History Father Diabetes mellitus Mother Skin cancer Hypertension Sister Parkinson's disease Family/Other Diabetes mellitus Social History household members: spouse Smoking Status: Never smoker alcohol intake: never Discharge Assessment & Plan Assessment and Plan Assessment: Patient progressing as expected status post right total hip arthroplasty Plan of Treatment: * Anterior hip precautions * Weightbearing as tolerated * Aspirin 81 twice per day for DVT prophylaxis * Multimodal pain regimen with no IV opioids ordered * Apply ice machine to operative hip. Ensure that sufficient ice is in the chamber for the pad to remain cold * Follow up at [facility] in 2 weeks * Detailed postoperative instructions available at [email or web address] * Discharge home today in stable condition Discharge Plan Discharge Plan Patient Disposition: Home Discharge orders & Medications Discharge Orders: Discharge (Order); Ordered 06/29/24 Ordered By: Celestino Lanier Prescriptions: New acetaminophen 325 mg Tablet 650 mg PO Q6H Qty: 60 0RF polyethylene glycol 3350 17 gram Powder In Packet 17 gm PO DAILY PRN (Reason: Constipation) Qty: 10 0RF aspirin 81 mg Tablet,Delayed Release (Dr/Ec) 81 mg PO BID Qty: 60 0RF oxycodone 5 mg Tablet 5 mg PO Q3H PRN (Reason: Pain, Severe (7-10)) Qty: 30 0RF Continued atorvastatin [Lipitor] 80 mg tablet 80 mg PO BEDTIME Qty: 90 3RF lisinopril 20 mg tablet 10 mg PO DAILY triamcinolone acetonide 0.1 % cream 1 applic topical PRN PRN (Reason: Itching) Rx Instructions: apply to affected areas for 2 wks, then take 1 week off. repeat if needed meloxicam 7.5 mg tablet 7.5 mg PO BID Follow up/Referrals: Blaire Rich DO [Primary Care Provider] - Jay Jay Howard MD [Physician] - As previously scheduled Diet/Activity/Treatments Diet: Diet as Tolerated Other treatments: Weightbearing as tolerated Aspirin 81 twice per day for DVT prophylaxis Multimodal pain regimen with no IV opioids ordered Apply ice machine to operative hip. Ensure that sufficient ice is in the chamber for the pad to remain cold Follow up at [facility] in 2 weeks Detailed postoperative instructions available at [email or web address] Visit Report/Discharge Packet Instructions: DI for Hip Replacement, DI for Prescription Opioid Use Stand Alone Forms: Patient Portal/API, Surgery Discharge Discharge Data Primary Care Provider: Blaire Rich Attending Provider: Jay Jay Howard Quality VTE Deep Vein Thrombosis/Pulmonary Embolism Present on Admission: No
[2024-06-29] MEDS: DOCUSATE 100 MG CAPSULE PO (09:18)
[2024-06-29] MEDS: ASPIRIN EC 81 MG TABLET PO (09:18)
--- NOTE | 2024-06-29 09:44 | PC.NURSE ---
Day shift: Left unit via WC at approx 0945. Paperwork signed and all questions answered. Pt's eye glasses missing. Per Pt I gave my glasses to someone in anesthesia and I can't find them now. This teletypewriter operator looked in PACU area. Recommended Pt call surgery Monday and inquire about his glasses. scripts sent electronic to Pt's pharmacy. Pain well controlled per NOV.
--- NOTE | 2024-06-29 12:56 | CM.DANOTE ---
Discharge Planning/Care Management CM Discharge Assessment Start: 06/29/24 12:39 Freq: Status: Active Protocol: Document 06/29/24 12:39 EMILY (Rec: 06/29/24 12:56 EMILY [id number]) Discharge Planning Assessment Assigned Housekeeping Aid BRYAN Madden DPOA/Assigned Designee Name Junie Justin, spouse Contact Information [phone] Advance Directives? Yes: POA Advance Directives on File No History Provided By Patient,Family Member,Medical Record Prior Living Arrangements House Household Members spouse Type of transporation used prior to Drives own vehicle admit Independent with ADL's Yes Is patient alert and oriented? Yes Comment Patient is s/p Rt PRIYA. Patient planned pre-operatively to return home w/family to assist and patient has been cleared by therapt for this plan. No needs from this CM team identified. Patient will discharge home today with family and outpatient PT. Barriers to Discharge No Discharge Plan Home Transportation Arrangement Family Referrals Initiated None needed
== END 2024-06-29 10:02 | disposition home or self-care (01) ==
LOC: OR 06:04 → AC 06:06
PROVIDERS: PCP Family Medicine; Referring Provider Family Medicine; Visit Provider Orthopaedic Surgery Adult Reconstructive Orthopaedic Surgery
PROC: (CPT 27130; principal; 2024-06-28 07:45)
DX: M16.11 Unilateral primary osteoarthritis, right hip (principal)
CPT/HCPCS: 27130; 36415; 73502; 76000; 85014; 85018; 97162; 97530; C1776; J0690; J1100; J1171; J2405; J2704; J3010; P9045

== ENCOUNTER 2024-07-19 06:05 | Day surgery (SDC) | payer MEDICARE, OTHER, SELFPAY ==
[2024-06-28 11:44] VITALS: BMI 31.2
[2024-07-11 08:23] VITALS: BMI 31.1
[2024-07-19] VITALS (12 sets, daily range): BP systolic 98–127; BP diastolic 47–72; PULSE 65–85; RESP 12–19; TEMP 36.2–37.1; O2SAT 94–100; BMI 30.1; BMI 30.7
--- NOTE | 2024-07-19 06:00 | DI.RAD.S_ITS ---
PROCEDURE: XR HIP W PEL IF DONE LT 2V INDICATIONS: josué TECHNIQUE: Multiple spot fluoroscopic intraoperative images of the pelvis and left hip. [facility] PELVIS WITH LATERAL HIP RIGHT, 07/16/2024, 9:57. FINDINGS: Intraoperative images demonstrate left hip arthroplasty with hardware components in expected positions. Stable appearance of the right hip arthroplasty. IMPRESSION: Expected intraoperative appearance of the left total hip arthroplasty. Approved by: Andrzej Payne M.D. on 07/19/2024 at 12:24
[2024-07-19] MEDS: LACTATED RINGERS 1,000 ML 42 ML IV (07:15)
[2024-07-19] MEDS: ACETAMINOPHEN 325 MG TABLET 975 MG PO (07:18)
[2024-07-19] MEDS: MELOXICAM 7.5 MG TABLET 15 MG PO (07:19)
--- NOTE | 2024-07-19 07:28 | SUR.OPER ---
Patient supine on padded [place] table, one arm on padded arm board at <90, other arm padded and secured with tape across patient's chest, both legs secured in padded traction boots and positioned per surgeon, padded post at patient's groin, pressure points checked and padded.
--- NOTE | 2024-07-19 07:44 | PM.PREOP ---
Pre-operative Note Interval Note History & Physical reviewed/Exam performed by Physician: Yes Changes to H&P: No
[2024-07-19] MEDS: CEFAZOLIN 2 GM/100 ML PREMIX 100 ML IV ×2 (07:50→16:34)
[2024-07-19] MEDS: TRANEXAMIC ACID 1,000 MG VIAL 2000 MG INJ ×2 (08:15→09:20)
[2024-07-19] MEDS: ROPIVACAINE/EPI/CLONIDINE/KET 50 ML SYRINGE INJ (08:25)
--- NOTE | 2024-07-19 09:13 | P.OP_ITS ---
Operative Date/Time/Diagnoses Date of procedure: 07/19/24 Pre-op diagnosis: Left hip osteoarthritis Post-op diagnosis: same Procedure & Clinicians Procedure: Left total hip arthroplasty Same procedure as scheduled: Yes Surgeon: Jay Jay Howard Material Cutter: Rica Adrian Anesthesia Type: General and Local Operative Notes Estimated Blood Loss (mL): 250 Procedure in detail: Left Uncemented Direct Anterior Depuy Total Hip Arthroplasty: Implants: * Terry Gription size 58 cup? * Actis femoral stem size 6 high offset? * 36 mm +12 ceramic femoral head? Procedure Summary: This 74-year-old male patient had a right total hip arthroplasty performed by me a few weeks ago. During today's procedure I essentially replicated the prior 1. He had required a TFL release and conjoined tendon release on the contralateral side and this was utilized again today as he was very tight during today's procedure as well. I did go 1 size up on his cup, finding that there was still some looseness with a 55 mm Reamer and up sizing to a 58 cup because of this. He had had a 56 mm cup on the contralateral side. I used the same sized stem and head as I had on the contralateral side. All parameters were appropriate with these implants. Procedure in Detail: This patient was seen preoperatively and evaluated for hip pain which was refractory to numerous nonoperative treatment modalities. Their hip pain correlated with radiographic changes demonstrating significant degeneration in the hip joint. The risks and benefits of continued nonoperative management versus operative management were discussed at length and all of the patient?s questions were answered. Additional educational materials providing further details beyond our discussion in clinic were provided via a publicly available patient education video which included the incidence of medical complications associated with total hip arthroplasty, reasons for revision following total hip arthroplasty, and patient satisfaction rates following total hip arthroplasty. That video can be accessed at [email or web address] . With this understanding of the risks inherent to the procedure, the patient elected to move forward with operative management. Following preoperative optimization, the patient was scheduled for surgery. The patient was met in the preoperative holding area the day of the procedure and all questions were answered. The patient?s nares were swabbed with betadine in order to decolonize them from MRSA. Informed consent was signed and the left limb was marked with indelible ink.? The patient was brought back to the operating room where anesthesia was induced. The patient was transferred to the [place] table and all bony prominences were padded. The operative site was prepped and draped in the usual sterile fashion. Prior to incision, tranexamic acid and cefazolin were administered. Operative templating images were displayed demonstrating the anticipated implant sizes and correct operative extremity. A timeout procedure was performed verifying the patient?s identity, medical comorbidities, allergies, relevant medications, anesthesia type and the surgical plan. All present were in agreement. The assistance of a physician marketing communications assistant was required for positioning, room setup, soft tissue retraction and wound closure. Without this assistance, the procedure would have been significantly more challenging and time consuming.?? A direct anterior approach to the hip was utilized. This was performed with a longitudinal incision through a Heuter interval. The incision was planned 2 cm distal and 2 cm lateral to the ASIS extending towards the lateral patella, in line with the muscle body of the TFL. Following incision, the subcutaneous tissue was dissected while taking care to avoid injury to the lateral femoral cutaneous nerve. The fascia overlying the TFL was identified by dissecting off the overlying fat and identifying perforating vessels to the TFL. The TFL fascia was incised and dissected away from the medial border of the TFL. A cobra retractor was placed over the superior femoral neck between the abductors and the hip capsule and used to reflect the TFL laterally. A [place] self-retainer was then placed in the distal aspect of the wound between the TFL and the rectus femoris. This was tensioned to open up the direct anterior interval and the lateral circumflex vessels were identified and coagulated using electrocautery. The floor of the TFL fascia was incised, exposing the pericapsular fat overlying the hip capsule. A second cobra retractor was placed on the inferior femoral neck. A double-bent soft tissue retractor was placed on the anterior wall of the acetabulum and used to tension the reflected head of rectus femoris, which was then released in order to limit soft tissue tension. A capsulotomy was made in the midline of the anterior hip capsule in line with the femoral neck ending at the vastus tubercle. The double-bent retractor was removed in order to limit the amount of time that a soft tissue retractor remained on the anterior wall and protect the femoral nerve. Tag stitches were placed in the superior and inferior leaflets of the hip capsule. An Buzz soft tissue retractor was introduced over the tag stitches and tensioned in the interval between the rectus femoris and the TFL in order to retract and protect those muscles. The cobra retractors were replaced intracapsularly, with one over the superior neck in the pocket created by the base of the greater trochanter and the other on the femoral head. The capsulotomy was extended laterally to the base of the greater trochanter and medially to the lesser trochanter. This required externally rotating the hip. Once the lesser trochanter had been identified, a neck cut was planned according to measurements from preoperative templating. A ruler was cut at the length measured between the superior aspect of the lesser trochanter and the collar of the prosthesis. This line was extended towards the inferior aspect of the lateral cobra retractor to plan a cut which would leave minimal residual femoral neck laterally. The neck was cut at 60 degrees of external rotation along that line. A second cut was performed to remove a large napkin ring and facilitate head extraction. The napkin ring cut and femoral head were removed.?? A broad anterior wall retractor was placed between the labrum and the anterior capsule so that the anterior capsule would prevent capturing and pinching the femoral nerve anteriorly. An additional retractor was placed on the posterior wall. External rotation and traction were applied through the [place] table so that the cut surface of the femoral neck would not restrict access to the acetabulum. The labrum was excised sharply and the pulvinar was excised with electrocautery to limit bleeding from branches of the obturator artery. Acetabular reamers were selected based on preoperative templating and measurements of the excised femoral head. These were introduced into the acetabulum. Fluoroscopy was utilized to replicate a standing AP pelvis radiograph by centering over the pelvis, rotating until there was appropriate symmetry between the obturator foramen, and introducing caudal tilt to match the position of the pubic symphysis relative to the sacrococcygeal junction according to the patient?s anatomy. Fluoroscopy was utilized to ensure appropriate reaming depth. Once satisfied with the reaming depth corresponding to the preoperative template and the pinch fit between the columns, an appropriate sized acetabular cup was selected which would provide 1 mm of press-fit. This cup was introduced and manipulated until appropriate abduction and anteversion angles were obtained with careful attention to appropriate abduction and anteversion angles as evaluated by the position of the cup relative to the anterior and posterior gutierrez of the acetabulum and the AP fluoroscopy which recreated the patient?s standing radiograph. The cup was impacted into place. Peripheral osteophytes were removed. The acetabular liner was then placed with care to ensure locking of the locking mechanism.? Attention was then turned to the femur. All retractors were removed, traction was released, a retractor was placed in the interval between the hip capsule and the gluteus minimus, and the hip was externally rotated to 90 degrees. Traction was applied through the [place] table to tension the lateral capsule and this was released using electrocautery. Traction was released and a [place] hook was placed posteriorly around the proximal femur at the level of the vastus ridge. The table height was lowered in order to restrict the tension on the anterior structures during hip hyperextension to limit the risk of femoral nerve palsy. With traction off and the hip at 90 degrees of external rotation, the hip was hyperextended and adducted while manually elevating the femur away from the acetabulum with the [place] hook to ensure it would not be caught behind the greater trochanter. An asymmetric retractor was placed over the calcar and a broad double-pronged retractor was placed over the greater trochanter. The tag stitch capturing the lateral leaflet of the capsule was moved to the medial side, leaving the conjoined and piriformis tendons isolated in the face of the greater trochanter. The hip was externally rotated and elevated. A release of the conjoined tendon was necessary in order to obtain adequate exposure for broaching. The canal was opened with an opening broach and a rasp was used to remove cancellous bone. A rongeur was used to remove the residual lateral bone at the base of the greater trochanter to avoid placing the stem in varus. The femur was then broached to the appropriate sized stem yielding good rotational fit and fill of the canal as well as appropriate version of the stem trial. Neck and head trials were placed, all retractors were removed and the hip was returned to neutral abduction and extension. I then reduced the hip. Initial trialing was performed with a size 6 broach, a high offset neck and a +12 head. I initially manually externally rotated the hip and found that it was very tight and there was no instability. I then locked the hip in 45 degrees of external rotation and dropped it to the floor with traction off which d emonstrated no instability. An AP pelvis fluoroscopic image matching the preoperative standing radiograph with both lesser trochanters visible and both hips in 40 degrees of external rotation demonstrated symmetric leg lengths to the contralateral side which I had recently replaced. AP and lateral hip fluoroscopic images were obtained to evaluate the broach size which demonstrated appropriate canal fill. The hip was dislocated and I returned to the broaching position. Based on my evaluation during initial trialing I planned to place the definitive implants. The definitive stem was placed and the trunnion was cleaned and dried. I placed a ceramic head onto the trunnion and impacted it into place on the Baer taper.?? All retractors were removed and the hip was reduced. A dilute mixture of betadine and peroxide was used to bathe the soft tissues during final fluoroscopic assessment. Appropriate component positioning was confirmed on an AP pelvis radiograph with the operative and nonoperative legs in 40 degrees of external rotation, evaluating leg length and offset. Appropriate stem fill was evaluated on AP and lateral hip radiographs. No fractures were identified on these radiographs. There was no hip instability with maximum (105?) external rotation as well as a 45 degree drop test. The hip was copiously irrigated with pulse lavage. The capsule was closed with absorbable interrupted suture. The TFL fascia was closed with barbed suture while carefully protecting the lateral femoral cutaneous nerve from entrapment. A mixture of Ropivacaine, Epinephrine, Clonidine and Toradol was infiltrated throughout the soft tissues. The skin was closed with 2-0 and 3-0 sutures. Surgical glue was applied and a soft dressing was placed.??The sponge, instrument and needle counts were reported as being correct at the end of the case.??No obvious complications occurred. The patient was transferred from the [place] table back to a stretcher. The patient emerged from anesthesia without d ifficulty and was taken to the PACU in a stable condition.? Plan for aftercare: * Anterior hip precautions * Weightbearing as tolerated * Aspirin 81 twice per day for DVT prophylaxis * Anticipate discharge home today * Change into normal clothes upon arrival on the hospital floor * Mobilize in the halls as much as is logistically possible. If physical therapy is unavailable for mobilization, then patient should mobilize with nursing staff * Multimodal pain regimen with no IV opioids ordered * Apply ice machine to operative hip. Ensure that sufficient ice is in the chamber for the pad to remain cold * Follow up at [facility] in 2 weeks * Detailed postoperative instructions available at [email or web address]
--- NOTE | 2024-07-19 10:00 | DI.RAD.S_ITS ---
PROCEDURE: XR HIP W PEL IF DONE LT 2V INDICATIONS: LEFT TOTAL HIP TECHNIQUE: AP pelvis and lateral view of the hip acquired. COMPARISON: [facility], CR, XR HIP W PEL IF DONE LT 2V, 07/19/2024, 8:49. [facility], CR, XR PELVIS WITH LATERAL HIP RIGHT, 07/16/2024, 9:57. FINDINGS: Bones: Patient is status post left total hip arthroplasty, with hardware components in expected positions. The hip joint appears congruent. The visualized bony structures appear intact. Right total hip arthroplasty appears unchanged. Soft tissues: Overlying postoperative changes are noted. No suspicious soft tissue densities. IMPRESSION: Expected post-operative appearance of a left hip arthroplasty. Approved by: Andrzej Payne M.D. on 07/19/2024 at 12:26
[2024-07-19] MEDS: LACTATED RINGERS 1,000 ML 100 ML IV (11:19)
[2024-07-19] MEDS: ACETAMINOPHEN 325 MG TABLET 650 MG PO ×3 (11:21→22:03)
--- NOTE | 2024-07-19 15:00 | PT.IIE ---
Current Diagnoses Unilateral primary osteoarthritis, left hip (07/19/24) Presence of unspecified artificial hip joint (07/19/24) Surgery Performed Operation Date: 07/19/24 07:45 Actual Procedures p Total Hip Arthroplasty/Anterior Approach(Left) - Jay Jay Romo MD Surgical History (Last Reviewed 07/19/24 @ 06:52 by Chelsea Rodney, RN) Anesthesia History of total right hip arthroplasty (06/28/24) Status post third molar tooth extraction (~1982) Medical History (Last Reviewed 07/19/24 @ 06:52 by Chelsea Rodney, RN) Encounter for subsequent annual wellness visit (AWV) in Medicare patient Essential hypertension Mixed hyperlipidemia Venous insufficiency Physical Therapy Inpatient Evaluation/Re-Eval M1 PT/OT-IP Prior Functional Status Start: 07/19/24 17:31 Freq: NEEDED Status: Active Protocol: Document 07/19/24 15:00 AB (Rec: 07/19/24 17:50 AB [id number]) Medical Review Prior Functional Status Medical History Reviewed Yes Communication able to make needs known Mobility and Gait pt stated that he was independent with all mobilities and ambulation without AD but uses a FWW for initial standing for safety but afterward, able to walk without AD Activities of Daily Living and IADL's Per OT note. Pt needing assist with LB dressing needs that his was able to assistt him. Prior Functional Level (Other details) Pt just having right PRIYA anterior on 06/28/24. Social History Household Members spouse Living Arrangements House Number of Floors (Floors) One Floor Number of Stairs To Enter/Railing? 2 steps with no rail ~ 50ft to walk to the ramp in the back. Home Environment High Toilet,Walk in Shower, Built-In Shower Seat Home Equipment Front Wheel Walker,Straight Cane,Hand Held Shower,Grab Bars In Shower Additional Social History Comment pt has an adjustable bed M2 PT-IP Current Condition Start: 07/19/24 17:31 Freq: NEEDED Status: Active Protocol: Document 07/19/24 15:00 AB (Rec: 07/19/24 17:50 AB [id number]) Physical Therapy Current Condition Current Condition Evaluation Date 07/19/24 Treatment Diagnosis s/p L PRIYA anterior; difficulty in walking Onset Date 07/19/24 M3 PT-IP Subjective Start: 07/19/24 17:31 Freq: NEEDED Status: Active Protocol: Document 07/19/24 15:00 AB (Rec: 07/19/24 17:50 AB [id number]) Subjective Physical Therapy Visit Type Type Initial Evaluation Visit Start Time 15:00 Visit Stop Time 16:10 Number of [employer] Visits 0 Physical Therapy Visit Comments Patient Comments agreeable to do PT; wants to go home Therapy Pain Assessment Pain When Pain Assessed During Mobility Pain Present Pain Present Pain Reported Location Left Hip Scale Used pain scale not stated Pain Management Techniques Apply Cold,Distraction, Modification of Treatment,Re- positioning,Timing of Activity with Medications M4 PT-IP Mobility and Gait Start: 07/19/24 17:31 Freq: NEEDED Status: Active Protocol: Document 07/19/24 15:00 AB (Rec: 07/19/24 17:50 AB [id number]) PT-Bed Mobility Assessment Supine to Sit Supine to Sit Moderate Assistance,1 Person Assistance Sit to Supine Sit to Supine Moderate Assistance,1 Person Assistance PT-Transfer Assessment Sit to and From Stand Sit to and from Stand Maximum Assistance,1 Person Assistance,Use of Upper Extremities Equipment Transfer Assistive Device Gait Belt,Front Wheeled Walker Orthotic/Prosthetic Devices or Brace: No Transfers Transfer Destination Bed,Chair Transfer Technique Stand Step Pivot Transfer Ability Level of Assist Moderate Assistance,1 Person Assistance,Use of Upper Extremities Comments Mobility Comments pt sitting on the chair and just finished with OT. pt just had his R PRIYA anterior . reviewed hip precautions with pt and spouse . pt wants to go home today. BP checked: 119/49. completed sit to stand from the chair max A and cues and ambulated in room ~ 20 ft using FWW mod A and cues. pt sat back on chair. caregiver training initiated. caregiver training was conducted last time pt was in for R PRIYA last June but spouse stated that she has forgotten on how to assist pt. educated spouse on how to use safety belt. spouse required max cues and repetitions on how to put belt on pt. educated spouse on how to assist pt. spouse was able to assist pt with sit to stand and ambulation in room using FWW mod A and cues ~ 30 ft. pt sat back on the chair. Dr. romo arrived to checked on pt. clarified anterior hip precautions for BLE and agreed. BP rechecked: 106/59. pt rested and BP rechecked again after ~ 2 min: 103/56. informed pt regarding safety and decrease in BP but pt insistent on going home and wants to do stair climbing. PT got SPC and foot stool to do stair climbing. rechecked pt's BP : 80/44. informed pt that PT will hold off further activities due to decrease in BP. reclined pt on the chair. BP recheched: 97/46. Informed nurse regarding BP. Gait Assessment Gait Gait Assistance Required: Moderate Assistance Distance (Feet) 30 Able to Maintain Weight Bearing Status Yes During Gait Assistive Devices Assistive Device Gait Belt,Front Wheeled Walker Orthotic/Prosthetic Devices or Brace: No Gait Deviations General Gait Pattern Antalgic,Decreased Feet Clearance Factors Limiting Gait Function Factors Limiting Gait Function Decreased Activity Tolerance, Decreased Strength,Difficulty Following Directions,Limited Range of Motion,Pain,Poor Balance,Poor Safety Awareness PT-Balance Assessment Sitting Balance and Reactions Static Sitting Balance Ability Normal Dynamic Sitting Balance Ability Good Standing Balance and Reactions Static Standing Balance Ability Fair Dynamic Standing Balance Ability Fair Device Used FWW M5 PT-IP Objective Assessments Start: 07/19/24 17:31 Freq: NEEDED Status: Active Protocol: Document 07/19/24 15:00 AB (Rec: 07/19/24 17:50 AB [id number]) Orientation Orientation/Cognition Level of Alertness Alert Orientation Name,Place,Situation Language Function Ability No Deficits Noted Safety Awareness Decreased Safety Awareness Memory Description Short Term Impaired Gross Range of Motion Lower Extremity ROM Impairments increase LLE guarding Strength Lower Extremity Strength Assessment Right Impaired Hip 3-/5 Knee 3+/5 Sensation Assessment Sensation Sensation Description Numbness Comments Sensation Comments slight numbness on toes per pt Muscle Tone Muscle Tone WNL Yes M6 PT-IP Treatment Start: 07/19/24 17:31 Freq: NEEDED Status: Active Protocol: Document 07/19/24 15:00 AB (Rec: 07/19/24 17:50 AB [id number]) Physical Therapy Treatment Education Education Provided Precautions,Weight Bearing Status,Post-Op Packet,Safety M7 PT-IP Assessment and Plan Start: 07/19/24 17:31 Freq: NEEDED Status: Active Protocol: Document 07/19/24 15:00 AB (Rec: 07/19/24 17:50 AB [id number]) PT Summary Assessment and Plan Potential Rehabilitation Potential Fair Status of Condition at Evaluation Evolving Summary Impairments Pain,ROM,Strength,Balance, Coordination,Sensation,Tone, Cognition,Bed Mobility, Transfers,Gait,Activity Tolerance Assessment Summary pt is a 74 y/o M s/p L PRIYA anterior approach POD 0. pt just has R PRIYA anterior las . pt with bilateral hip anterior precautions and is WBAT. pt requiring mod to max A with mobility using FWW but unable to tolerate much activity with decrease in BP to 80/44 after ambulation. caregiver training initiated but further training is needed . spouse will stay with pt for the night and will attempt caregiver training tomorrow. will also complete stair climbing training. Goals Bed Mobility Goal Independent Transfer Goal Independent,Front Wheeled Walker Gait Goal Independent,Front Wheel Walker Gait Distance 150 Other Goals uup/down 2 steps without rails SPC+ [employer] Days to Meet Goals 5 Frequency of Treatment Frequency Of Treatment Twice a Day Treatment Plan Physical Therapy Treatment Plan Bed Mobility Training,Transfer Training,Gait Training, Therapeutic Exercise,Balance Retraining,Post Op Education, Discharge Planning,Hot or Cold Pack,Neuromuscular Re-ed, Coordination Retraining,Manual Therapy Other Recommendations and Next Treatment caregiver training, stair Focus climbing Precautions Anterior Hip Precautions No Hip Extension,No Hip External Rotation Weight Bearing Status Weight Bearing Status Weight Bear as Tolerated Allowed Weight Bearing Amount (enter % LLE WBAT or #) (%) Recommendations To Nursing Amount of Assist Needed 1 Person Assist Discharge Recommendations PT Discharge Recommendations Home with 10/04 Assist Available,Home Health Transportation Needs at Discharge Private Vehicle
--- NOTE | 2024-07-19 15:17 | OT.IP.EVAL ---
Current Diagnoses Unilateral primary osteoarthritis, left hip (07/19/24) Presence of unspecified artificial hip joint (07/19/24) Surgery Performed Operation Date: 07/19/24 07:45 Actual Procedures p Total Hip Arthroplasty/Anterior Approach(Left) - Jay Jay Howard MD Past Medical History (Last Reviewed 07/19/24 @ 06:52 by Chelsea Rodney, RN) Encounter for subsequent annual wellness visit (AWV) in Medicare patient Essential hypertension Mixed hyperlipidemia Venous insufficiency Surgical History (Last Reviewed 07/19/24 @ 06:52 by Chelsea Rodney, RN) Anesthesia History of total right hip arthroplasty (06/28/24) Status post third molar tooth extraction (~1982) Occupational Therapy Inpatient Evaluation/Re-Eval M1 PT/OT-IP Prior Functional Status Start: 07/19/24 15:21 Freq: NEEDED Status: Active Protocol: Document 07/19/24 15:21 [facility] (Rec: 07/19/24 15:35 [facility] [id number]) Medical Review Prior Functional Status Medical History Reviewed Yes Communication I Mobility and Gait Pt states used a FWW off and on. Pt states would use the FWW to push up to stand. Activities of Daily Living and IADL's Pt needing assist with LB dressing needs that his was able to assist him. Prior Functional Level (Other details) Pt just having right PRIYA anterior on 06/28/24. Social History Household Members spouse Living Arrangements House Number of Floors (Floors) One Floor Number of Stairs To Enter/Railing? 2 steps with no rail. 50ft to walk to the ramp in the back. Home Environment High Toilet,Walk in Shower, Built-In Shower Seat Home Equipment Front Wheel Walker,Straight Cane,Shower Seat without Backrest,Hand Held Shower,Grab Bars In Shower Additional Social History Comment Pt wanting to go home today. M2 OT-IP Current Condition Start: 07/19/24 15:21 Freq: Status: Active Protocol: Document 07/19/24 15:21 [facility] (Rec: 07/19/24 15:35 [facility] [id number]) Occupational Therapy Current Condition Current Condition Evaluation Date 07/19/24 Treatment Diagnosis S/P L PRIYA Diagnosis Onset Date 07/19/24 Post Operative Precautions Anterior Hip Precautions No Hip Extension,No Hip External Rotation M3 OT- IP Subjective and Pain Start: 07/19/24 15:21 Freq: Status: Active Protocol: Document 07/19/24 15:21 [facility] (Rec: 07/19/24 15:35 [facility] [id number]) OT- Subjective Occupational Therapy Visit Type Type Initial Evaluation Visit Start Time 14:30 Visit Stop Time 15:17 Occupational Therapy Visit Comments Patient Comments Pt wanting to go home and agreed to try to get up. Patient/Caregiver Goals TO go home. OT Pain Assessment Pain When Pain Assessed At Rest Pain Present Pain Present Pain Reported Location right hip Intensity 3 Scale Used Numeric (0 - 10) M4 OT- IP ADL's Start: 07/19/24 15:21 Freq: Status: Active Protocol: Document 07/19/24 15:21 [facility] (Rec: 07/19/24 15:35 [facility] [id number]) OT LOB-Lpap-Hqnmpyx Comments OT Self-Feeding Comments Not at meal time. OT ADL-Grooming Comments OT Grooming Comments Not performed. OT ADL-Oral Care Comments Oral Care Comments Not performed. OT ADL-Dressing General Eval Lower Body Dressing Ability Maximum Assistance Areas Needing Assistance Socks Comments OT Dressing Comments Suggested pt get LB dressing equipment and to dress his LLE first and take out last. Pt would benefit from city superintendent and sock aid. OT ADL-Toileting Comments OT Toileting Comments Pt not having to go. Educated will be easier to stand and wipe at this time. Educated to use a urinal at night. Pt will benefit form a BSC. OT ADL-Bathing Comments OT Bathing Comments Pt will benefit from assist. Educated on care of the dressing while showering . M5 OT- IP IADL's Start: 07/19/24 15:21 Freq: Status: Active Protocol: Document 07/19/24 15:21 [facility] (Rec: 07/19/24 15:35 [facility] [id number]) OT-Instrumental Activities of Daily Living Home Safety Awareness Awareness of Need for Assistance at Home Decreased Awareness Home Safety Comments Pt a bit groggy and not able to recall his hip precautions at this time. Meal Preparation Meal Preparation Caregiver Provides Assist Speed Belt Sander Speed Belt Sander Caregiver Provides Assist M6 OT- IP Functional Cognition Start: 07/19/24 15:21 Freq: Status: Active Protocol: Document 07/19/24 15:21 [facility] (Rec: 07/19/24 15:35 [facility] [id number]) Cognitive Factors Limiting Selfcare Function Cognitive Ability Level of Alertness Drowsy Patient Orientation Name,Place,Situation Attention Span Ability Capable of Focused Attention, Capable of Sustained Attention Ability to Follow Commands Able to Follow One Step Commands with Increased Time, Able to Follow One Step Commands with Repetition Memory Description Short Term Impaired Safety Awareness Decreased Recall of Precautions,Decreased Ability to Apply Precautions, Underestimates Need for Assistance Cognitive Comments Cognitive Assessment Comments Pt not able t recall his hip precautions even after education. Pt still very groggy from just having sx this morning. OT- Vision and Hearing OT- Vision Assessment Visual Acuity Glasses All The Time Visual Attentiveness WFL Occular Pursuits WFL M7 OT- IP Mobility and Balance Start: 07/19/24 15:21 Freq: Status: Active Protocol: Document 07/19/24 15:21 [facility] (Rec: 07/19/24 15:35 [facility] [id number]) OT- Bed Mobility Assessment Supine to Sit Supine to Sit Assist Moderate Assistance,1 Person Assistance OT-Transfer Assessment Sit to and From Stand Sit to and from Stand Maximum Assistance,1 Person Assistance Transfers Transfer Ability Minimal Assistance,Moderate Assistance Technique Transfer Destination Bed,Chair Devices Transfer Assistive Devices Gait Belt,Front Wheeled Walker Comments Mobility Comments MODA to assist to get his LLE out of bed, vc to keep his toes up. MAX X 1 to stand as pt buckling and needing cues to straighten/tighten his quads when coming to stand. Once on his feet min/MODA with the FWW to transfer to the recliner and assist to lower down to the recliner. OT- Balance Assessment Sitting Balance and Reactions Static Sitting Balance Ability Good Dynamic Sitting Balance Ability Fair Standing Balance and Reactions Static Standing Balance Ability Poor Dynamic Standing Balance Ability Poor M8 OT- IP Objective Assessments Start: 07/19/24 15:21 Freq: Status: Active Protocol: Document 07/19/24 15:21 [facility] (Rec: 07/19/24 15:35 [facility] [id number]) OT Gross Range of Motion Upper Extremity Range of Motion Assessment Within Functional Limits OT Strength Upper Extremity Strength Assessment Within Functional Limits M9 OT- IP Assessment and Plan Start: 07/19/24 15:21 Freq: Status: Active Protocol: Document 07/19/24 15:21 [facility] (Rec: 07/19/24 15:35 [facility] [id number]) OT Summary Assessment and Plan Potential Rehabilitation Potential Good Analytic Complexity at Evaluation Low Summary OT Impairments Pain,Strength,Balance, Functional Mobility,Grooming, Dressing,Toileting,Bathing, Toilet Transfers,Shower Transfers,Activity Tolerance Progress Towards Goals Slow Progress due to Pain,Slow Progress due to Medical Issues Assessment Summary Pt low complexity man barriers are steps and pain. Pt just having sx this morning but still having weakness and decreased control on his LLE. Pt needing MODA for bed mobility and MAXA x1 to stand at this time. Pt had RTHA on 06/28/24 and on day of sx needing MAX AX 1 to stand and on the next day did much better and able to go home. Pt to go home when medically stable with and have outpt PT. BP sitting 118/56, 135,65 and after transfer 119/ 49. Goals Self-Feeding Goal Independent Grooming Goal Independent Dressing Goal Moderate Assistance Toileting Goal Minimal Assistance Bathing Goal Moderate Assistance Toilet Transfer Goal Standby Assistance Shower Transfer Goal Contact Guard Assistance Days to Meet Goals 5 Frequency of Treatment Other frequency 5x/week Treatment Plan OT Treatment Plan ADL Training,Functional Mobility,Patient/Family Education,Discharge Planning Discharge Recommendations OT Discharge Recommendations Home with 10/04 Assist Available,Outpatient PT Home [place] [facility] [place]eds at Discharge Private Vehicle
--- NOTE | 2024-07-19 16:41 | PC.NURSE ---
Pt arrived S/P left hip surgery. Ryanell dsg to area CDI IVf infusing as per MD orders. Bilatertal lower legs wrapped w/gauze for some wounds prior to admit. Call light w/in reach, bed alfrrm on for pt safety Continue w/ plan of care.
--- NOTE | 2024-07-19 17:51 | PC.NURSE ---
Pt resting at intervas Dsg to surgical hip[ CDI IVF continue as per orders Call light w/in reach, pt calls appropriately for needs. Continue w/plan of care.
[2024-07-19] MEDS: MELOXICAM 7.5 MG TABLET PO (22:02)
[2024-07-19] MEDS: DOCUSATE 100 MG CAPSULE PO (22:02)
[2024-07-19] MEDS: ASPIRIN EC 81 MG TABLET PO (22:02)
[2024-07-19] MEDS: ATORVASTATIN 20 MG TABLET 80 MG PO (22:02)
[2024-07-20] VITALS: BP 108/55; PULSE 76; RESP 16; TEMP 36.7; O2SAT 97
[2024-07-20] MEDS: CEFAZOLIN 2 GM/100 ML PREMIX 100 ML IV ×2 (00:05→08:01)
[2024-07-20 04:54] LABS: Hematocrit 22.2 % (41-53); Hemoglobin 7.5 g/dL (13.5-17.5)
[2024-07-20] MEDS: ACETAMINOPHEN 325 MG TABLET 650 MG PO ×2 (05:25→10:53)
[2024-07-20 08:00] VITALS: BP 111/57; PULSE 87; TEMP 36.7; O2SAT 99
--- NOTE | 2024-07-20 08:36 | PC.NURSE ---
Pt alert and oriented. Conversant. offers no overt c/o, expressing interest at going home today. Pt sitting in recliner. reported by noc RN he has been in the recliner all night. Surgical site CDI. lower leg bandages ( ankle) weepier on the right more so than left. attentive at bedside.
[2024-07-20] MEDS: MELOXICAM 7.5 MG TABLET PO (09:30)
[2024-07-20] MEDS: ASPIRIN EC 81 MG TABLET PO (09:30)
[2024-07-20] MEDS: DOCUSATE 100 MG CAPSULE PO (09:30)
--- NOTE | 2024-07-20 09:30 | P.DS_ITS ---
History of Present Illness History of Present Illness Date Patient Seen: 07/20/24 Time Patient Seen: 09:30 Chief complaint: L PRIYA *OPB* Narrative: Operative Date/Time/Diagnoses Date of procedure: 07/19/24 Pre-op diagnosis: Left hip osteoarthritis Post-op diagnosis: same Procedure & Clinicians Procedure: Left total hip arthroplasty Same procedure as scheduled: Yes Surgeon: Jay Jay Howard Cco & President: Rica Adrian Anesthesia Type: General and Local Operative Notes Estimated Blood Loss (mL): 250 Procedure in detail: Left Uncemented Direct Anterior Depuy Total Hip Arthroplasty: Implants: * [place] Gription size 58 cup? * Actis femoral stem size 6 high offset? * 36 mm +12 ceramic femoral head? Discharge Providers Provider Discharge Date: 07/20/24 Primary care physician: Blaire Rich DO Consults: 07/19/24 06:00 Consult to Anesthesiology Routine Comment: Consulting Provider: Anesthesiologist Reason for consultation: Regional block for post operative pain control 07/19/24 10:26 Consult to Discharge Planning Routine Comment: Consult to Occupational Therapy Evaluate & Treat Comment: Physician Instructions: Evaluate and treat Consult to Physical Therapy Evaluate & Treat Comment: Physician Instructions: post op PRIYA protocol Discharge provider: Rica Adrian PA-C Summary Hospital Course Discharge Diagnosis: Left hip osteoarthritis, s/p left total hip arthroplasty Hospital Course: Mr Justin's hospital course was unremarkable. He wanted to discharge home on the day of surgery, but PT felt he was too unstable. On the morning of POD# 1, his H/H was low as a result of expected surgical blood loss, but he was asymptomatic. He was eating and voiding without difficulty and his pain was well-controlled with oral medication. He presented for this surgery with weeping blisters on BLE, R>L. He said this started about a week ago, and his PCP is unaware of this condition. His next scheduled follow-up is not until October 2024. Exam Vital Signs (past 8 hours): - 07/20/24 08:00 Temperature 98.1 F Pulse Rate 87 Blood Pressure 111/57 L Pulse Oximetry 99 Oxygen Flow Rate 0 Oxygen Delivery Method Room Air Oxygen Flow Rate 0 Narrative Exam Narrative: 5/5 strength in hip flexors, quadriceps, hamstrings, DF, PF, EHL on left. Sensation to light touch intact throughout LLE, calf soft and compressible. Aquacel dressing CDI. Lymphorrhea noted in bilateral lower legs, much worse on the right than left. Open areas were covered with Adaptic and wrapped in Kerlix and CATALINO wraps. There is no sign of cellulitis at this time. Objective Labs 07/20/24 04:35 Labs: Laboratory Results - last 24 hr 07/20/24 04:35 Hgb 7.5 L Hct 22.2 L [facility] Medical History Encounter for subsequent annual wellness visit (AWV) in Medicare patient Venous insufficiency Essential hypertension Mixed hyperlipidemia Surgical History (Updated 07/19/24 @ 09:52 by Riac Adrian PA-C) History of total right hip arthroplasty (06/28/24) Anesthesia Status post third molar tooth extraction (~1982) Family History Father Diabetes mellitus Mother Skin cancer Hypertension Sister Parkinson's disease Family/Other Diabetes mellitus Social History household members: spouse Smoking Status: Never smoker alcohol intake: never Discharge Assessment & Plan Assessment and Plan Assessment: 1) Left hip osteoarthritis, s/p left total hip arthroplasty 2) Acute postop anemia d/t expected surgical blood loss 3) Lymphorrhea BLE Plan of Treatment: 1) Discharge home, WBAT, anterior hip precautions, multimodal pain control, ASA 81mg BID for VTE prophylaxis, outpt PT, f/u in office as scheduled. 2) Anemia is asymptomatic and should resolve on its own. No intervention needed at this time. 3) Advised pt to make an appt with Dr Rich as soon as possible to address lymphorrhea. Will send cefadroxil BID x 10 days for PJI prophylaxis in light of open skin. Discharge Plan Discharge Plan Patient Disposition: Home Discharge orders & Medications Discharge Orders: Discharge (Order); Ordered 07/20/24 Ordered By: Rica Adrian Prescriptions: New oxycodone 5 mg tablet 5 mg PO Q4-6H PRN (Reason: pain (scale score 4-6)) Qty: 20 0RF cefadroxil 500 mg capsule 500 mg PO BID Qty: 20 0RF Continued atorvastatin [Lipitor] 80 mg tablet 80 mg PO BEDTIME Qty: 90 3RF lisinopril 20 mg tablet 10 mg PO DAILY meloxicam 7.5 mg tablet 7.5 mg PO BID acetaminophen 325 mg Tablet 650 mg PO Q6H Qty: 60 0RF polyethylene glycol 3350 17 gram Powder In Packet 17 gm PO DAILY PRN (Reason: Constipation) Qty: 10 0RF aspirin 81 mg Tablet,Delayed Release (Dr/Ec) 81 mg PO BID Qty: 60 0RF Patient Comments: Will check with MD when to stop aspirin. oxycodone 5 mg Tablet 5 mg PO Q3H PRN (Reason: Pain, Severe (7-10)) Qty: 30 0RF Follow up/Referrals: Blaire Rich DO [Primary Care Provider] - (Call for appt BENNY d/t new onset of weeping skin.) Jay Jay Howard MD [Physician] - 08/01/24 10:00 am (Follow up w/ Rica Adrian PA-C, at [facility] office in [place].) Diet/Activity/Treatments Diet: Diet as Tolerated Activity: Weightbearing as tolerated. Anterior hip precautions. Cold/Heat Therapy: Ice to hip as needed for pain. Skin/Wound/Dressing Care Report to your healthcare provider any signs of infection, such as:: chills, fever, night sweats, unusual drainage and unusual redness Dressing: May shower. Keep dressing in place until follow up in office. No bathing or otherwise soaking incision. Call the office if the dressing becomes saturated inside. Visit Report/Discharge Packet Instructions: DI for Hip Replacement, DI for Prescription Opioid Use Stand Alone Forms: Patient Portal/API, Surgery Discharge Discharge Data Primary Care Provider: Blaire Rich Attending Provider: Jay Jay Howard Quality VTE Deep Vein Thrombosis/Pulmonary Embolism Present on Admission: No
--- NOTE | 2024-07-20 10:58 | CM.DANOTE ---
DCP Assessment note Pt is a 74yo M POD right total hip, left total hip completed a month ago, 06/28/24. PCP Dr. Layla Aponte Medicare and [facility] [employer] ARCHERY EQUIPMENT REPAIRER reviewed EMR. per chart, pt returned home with spouse support last surgery no CM needs. Per PT/OT, rec home with assistance. have all equip for home. pt was having BP concerns yesterday. Per ortho PA, pt cleared to dc home today, want pt to f/u with PCP to address lymphorrhea. ARCHERY EQUIPMENT REPAIRER messaged TCM OP team to help arrange f/u. ARCHERY EQUIPMENT REPAIRER met with pt and spouse in room. Pt and spouse eager to dc home, report that they have all equip at home, no CM needs. P: anticipate dc home today with OP f/u, home with spouse. No identified barriers to dc home at this time. CM team will continue to follow as needed BRYAN Alonso Discharge Planning/Care Management CM Discharge Assessment Start: 07/20/24 10:57 Freq: Status: Active Protocol: Document 07/20/24 10:57 SL (Rec: 07/20/24 10:58 SL [id number]) Discharge Planning Assessment Assigned Special Education Teacher BRYAN Portillo DPOA/Assigned Designee Name Junie, spouse Contact Information [phone] Advance Directives? Yes: POA Advance Directives on File No History Provided By Patient,Family Member,Medical Record Prior Living Arrangements House Household Members spouse Type of transporation used prior to Drives own vehicle admit Independent with ADL's Yes Is patient alert and oriented? Yes Comment Patient is s/p left PRIYA. right PRIYA was completed a month ago , 06/28/24. Patient planned pre-operatively to return home w/family to assist and patient has been cleared by therapt for this plan. No needs from this CM team identified. Patient will discharge home today with family and outpatient PT. Discharge Plan Home Transportation Arrangement Family Referrals Initiated None needed Whiteboard Updated in Patient Room with Yes name and ext. # of Special Education Teacher Review Status In Process Please Provide Date Initial DC 07/20/24 Assessment Was Performed Next Review Type Continued Stay Review Pre-Anesthesia Assessment Start: 07/11/24 08:23 Freq: Status: Active Protocol: Document 07/11/24 08:23 LB (Rec: 07/11/24 09:18 LB [id number]) Pre-Anesthesia Assessment PAC Comment 07/11/24 Medication reminder only. Right total hip 06/28/24 . Diagnostic Results BMP/CMP,CBC,EKG Comment 05/13/24 06/29/24 H&H 11.1/31.7 Primary Care Provider Blaire Rich Seen Specialist in Last 12 Months Yes Specialist Seen Orthopedist Primary Language Vietnamese Preferred Language Vietnamese Dredge Pump Operator Required No Height 177.8 cm Weight 98.43 kg Body Mass Index (BMI) 31.1 Barriers to Learning None Hx Anesthesia Reactions No Hx Family Anesthesia Reaction No Hx Malignant Hyperthermia No Hx Blood Transfusions No Hx Blood Transfusion Reaction No Anesthesia Review Requested No Women'S Swim Coach No alcohol intake never Smoking Status Never smoker Substance Use Type does not use Prosthesis or Orthotic Device Front Wheel Walker Mental Status Oriented to own ability Comment Will bring walker. Is patient on oxygen? No Does patient have FENG/SOB No Hx Sleep Apnea No CPAP/BIPAP use not prescribed Currently Taking a Beta [place] No Can You Climb a Flight of Stairs Without Yes SOB Hx Chest Pain No Hx SOB No Hx Syncope or Dizziness No Anti-Coagulant Therapy Yes: Aspirin 81mg BID Cardiac Testing No: Echo 11/07/22 EF 55-60%. Hx Pacemaker/ICD No Hx Urinary Self Catheterization No Diabetes No HgbA1C 5.3 Date 05/13/24 Hx Drug Resistant Organism No Presence of External or Internal Medical Yes: Right hip. Devices Received a COVID vaccine? Yes Marital Status Lives With spouse Patient Discharge Plan Description Return Home Do You Have Any Spiritual Beliefs That No May Affect Your HC Choices? Do You Have Any Cultural Practices That No May Affect Your HC Choices? Emergency Contact Name Junie Justin - Emergency Contact Advance Directives? Yes: POA Advance Directives on File No Power of City Secretary
--- NOTE | 2024-07-20 11:00 | PT.IPTN ---
Current Diagnoses Unilateral primary osteoarthritis, left hip (07/19/24) Presence of unspecified artificial hip joint (07/19/24) Surgery Performed Operation Date: 07/19/24 07:45 Actual Procedures p Total Hip Arthroplasty/Anterior Approach(Left) - Jay Jay Howard MD Physical Therapy Treatment Note M2 PT-IP Current Condition Start: 07/19/24 17:31 Freq: NEEDED Status: Active Protocol: Document 07/19/24 15:00 AB (Rec: 07/19/24 17:50 AB [id number]) Physical Therapy Current Condition Current Condition Evaluation Date 07/19/24 Treatment Diagnosis s/p L PRIYA anterior; difficulty in walking Onset Date 07/19/24 M3 PT-IP Subjective Start: 07/19/24 17:31 Freq: NEEDED Status: Active Protocol: Document 07/20/24 11:23 TS (Rec: 07/20/24 11:27 TS [id number]) Subjective Physical Therapy Visit Type Type Treatment Note Visit Start Time 11:00 Visit Stop Time 11:19 Number of GANG RIPSAW OPERATOR Visits 1 Physical Therapy Visit Comments Patient Comments Pt is agreeable to PT. Therapy Pain Assessment Pain When Pain Assessed During Mobility Pain Present Pain Present Pain Reported M4 PT-IP Mobility and Gait Start: 07/19/24 17:31 Freq: NEEDED Status: Active Protocol: Document 07/20/24 11:23 TS (Rec: 07/20/24 11:27 TS [id number]) PT-Transfer Assessment Sit to and From Stand Sit to and from Stand Minimal Assistance,1 Person Assistance Equipment Transfer Assistive Device Gait Belt,Front Wheeled Walker Orthotic/Prosthetic Devices or Brace: No Comments Mobility Comments Pt recalls 2/2 hip precautions . STS with FWW Gayla for balance. He ambulates with FWW ~30'SBA. He performs stairs x2 with INSURANCE JOB TITLES. pt ambulates back to chair, all needs met. Gait Assessment Gait Gait Assistance Required: Standby Assistance Distance (Feet) 30 Able to Maintain Weight Bearing Status Yes During Gait Assistive Devices Assistive Device Gait Belt,Front Wheeled Walker Orthotic/Prosthetic Devices or Brace: No Gait Deviations General Gait Pattern Antalgic,Decreased Feet Clearance Factors Limiting Gait Function Factors Limiting Gait Function Decreased Activity Tolerance, Decreased Strength,Difficulty Following Directions,Limited Range of Motion,Pain,Poor Balance,Poor Safety Awareness Stair Climbing Assessment Evaluation Level of Assist On Stairs Contact Guard Assistance Devices Stair Climbing Assistive Devices Right Railing Technique/Endurance Stair Climbing Direction Ascend and Descend Stair Climbing Technique Step to Step Number of Steps Climbed 2 PT-Balance Assessment Sitting Balance and Reactions Static Sitting Balance Ability Normal Dynamic Sitting Balance Ability Good Standing Balance and Reactions Static Standing Balance Ability Good Dynamic Standing Balance Ability Fair Device Used FWW M5 PT-IP Objective Assessments Start: 07/19/24 17:31 Freq: NEEDED Status: Active Protocol: Document 07/19/24 15:00 AB (Rec: 07/19/24 17:50 AB [id number]) Orientation Orientation/Cognition Level of Alertness Alert Orientation Name,Place,Situation Language Function Ability No Deficits Noted Safety Awareness Decreased Safety Awareness Memory Description Short Term Impaired Gross Range of Motion Lower Extremity ROM Impairments increase LLE guarding Strength Lower Extremity Strength Assessment Right Impaired Hip 3-/5 Knee 3+/5 Sensation Assessment Sensation Sensation Description Numbness Comments Sensation Comments slight numbness on toes per pt Muscle Tone Muscle Tone WNL Yes M6 PT-IP Treatment Start: 07/19/24 17:31 Freq: NEEDED Status: Active Protocol: Document 07/20/24 11:23 TS (Rec: 07/20/24 11:27 TS [id number]) Physical Therapy Treatment Education Education Provided Precautions,Weight Bearing Status,Post-Op Packet,Safety M7 PT-IP Assessment and Plan Start: 07/19/24 17:31 Freq: NEEDED Status: Active Protocol: Document 07/20/24 11:23 TS (Rec: 07/20/24 11:27 TS [id number]) PT Summary Assessment and Plan Potential Rehabilitation Potential Fair Summary Impairments Pain,ROM,Strength,Balance, Coordination,Sensation,Tone, Cognition,Bed Mobility, Transfers,Gait,Activity Tolerance Progress Towards Goals Progressing Toward Goals Assessment Summary Pt is making progressing with his mobility. He requires Gayla for STS from the chair. He ambualtes ~30' SBA with FWW. He performed stairs x2 with INSURANCE JOB TITLES. He recalls his precautions and demonstrates good carryover. PT is recommending home with assist and outpatient PT. Goals Bed Mobility Goal Independent Transfer Goal Independent,Front Wheeled Walker Gait Goal Independent,Front Wheel Walker Gait Distance 150 Other Goals uup/down 2 steps without rails SPC+ INSURANCE JOB TITLES CGA Days to Meet Goals 5 Frequency of Treatment Frequency Of Treatment Twice a Day Treatment Plan Physical Therapy Treatment Plan Bed Mobility Training,Transfer Training,Gait Training, Therapeutic Exercise,Balance Retraining,Post Op Education, Discharge Planning,Hot or Cold Pack,Neuromuscular Re-ed, Coordination Retraining,Manual Therapy Precautions Anterior Hip Precautions No Hip Extension,No Hip External Rotation Weight Bearing Status Weight Bearing Status Weight Bear as Tolerated Allowed Weight Bearing Amount (enter % LLE WBAT or #) (%) Recommendations To Nursing Amount of Assist Needed 1 Person Assist Discharge Recommendations PT Discharge Recommendations Home with Assistance,Home Health Transportation Needs at Discharge Private Vehicle
== END 2024-07-20 11:24 | disposition home or self-care (01) ==
LOC: OR 06:06 → AC 06:07
PROVIDERS: PCP Family Medicine; Referring Provider Orthopaedic Surgery Adult Reconstructive Orthopaedic Surgery; Visit Provider Orthopaedic Surgery Adult Reconstructive Orthopaedic Surgery
PROC: (CPT 27130; principal; 2024-07-19 07:45)
DX: M16.12 Unilateral primary osteoarthritis, left hip (principal); M25.752 Osteophyte, left hip
CPT/HCPCS: 27130; 36415; 73502; 76000; 85014; 85018; 97162; 97165; 97530; C1776; J0690; J1100; J1171; J2405; J2704

== ENCOUNTER → 2024-07-30 11:06 | Outpatient (CLI) | payer MEDICARE, OTHER, SELFPAY ==
[2024-07-22 14:18] VITALS: BMI 30.7
--- NOTE | 2024-07-30 12:37 | DI.RAD.S_ITS ---
PROCEDURE: XR HIP W PEL IF DONE RT 2V INDICATIONS: hip px TECHNIQUE: AP pelvis with lateral view(s) of the right hip(s). COMPARISON: [facility], CR, XR HIP W PEL IF DONE LT 2V, 07/19/2024, 10:09. [facility], CR, XR HIP W PEL IF DONE LT 2V, 07/19/2024, 8:49. FINDINGS: Bones: Bilateral hip arthroplasties. No periprosthetic lucency about the right hip arthroplasty. No fractures or dislocations. Pelvic ring appears intact. No suspicious bony lesions. Soft tissues: The visualized bowel gas pattern is normal. No suspicious soft tissue calcifications. IMPRESSION: Bilateral hip arthroplasties appear unchanged. Dictated by: Riaz Garcia M.D. on 07/30/2024 at 20:31 Approved by: Riaz Garcia M.D. on 07/30/2024 at 20:42
[2024-07-30 13:02] LABS: Testosterone 161 ng/dL (71.8-623)
== END ==
LOC: LAB 12:37 → RAD 12:41
PROVIDERS: PCP Family Medicine; Referring Provider Orthopaedic Surgery Adult Reconstructive Orthopaedic Surgery; Visit Provider Orthopaedic Surgery Adult Reconstructive Orthopaedic Surgery
DX: R53.82 Chronic fatigue, unspecified (principal); E29.1 Testicular hypofunction; Z96.643 Presence of artificial hip joint, bilateral
CPT/HCPCS: 36415; 73502; 84403

== ENCOUNTER 2024-08-02 16:31 | Emergency (ER) | payer MEDICARE, OTHER, SELFPAY ==
[2024-07-22 14:18] VITALS: BMI 30.7
[2024-08-02] VITALS (16 sets, daily range): BP systolic 96–126; BP diastolic 50–58; PULSE 88–114; RESP 12–23; TEMP 36.9; O2SAT 93–99; BMI 29.8
--- NOTE | 2024-08-02 16:39 | EKG_ITS ---
[facility] [address] [address] Test Date: 2024-08-02 Pat Name: Estevan Justin RIZWAN Department: [facility] Room: Gender: Male Converting Supervisor: DWAINE : 1950 Requested By: Order Number: [id number] Reading MD: Estevan Durant MD Measurements Intervals [place] Rate: 99 P: 45 [place]: 196 QRS: -41 QRSD: 94 T: 40 QT: 360 QTc: 462 Interpretive Statements Normal sinus rhythm Left axis deviation Inferior infarct , age undetermined Electronically Signed On 08-02-2024 16:50:51 PST by Estevan Durant MD
[2024-08-02 16:57] LABS: Add Manual Diff / Slide Review NO; Basophils Absolute Auto 100 /uL (0-100); Basophils Percent Auto 0.7 % (0-2); Eosinophils Absolute Auto 0 /uL (0-450); Eosinophils Percent Auto 0.2 % (2-4); Hematocrit 25.4 % (41-53); Hemoglobin 8.3 g/dL (13.5-17.5); Lymphocytes Absolute Auto 700 /uL (1100-4500); Lymphocytes Percent Auto 3.7 % (25-40); Mean Corpuscular HGB Conc 32.7 % (30-36); Mean Corpuscular Hemoglobin 27.4 PG (26-34); Mean Corpuscular Volume 83.7 fL (80-100); Monocytes Absolute Auto 800 /uL (0-900); Monocytes Percent Auto 4.2 % (3-14); Neutrophils Absolute Auto 17700 /uL (1500-7000); Neutrophils Percent Auto 91.2 % (50-75); Platelet Count 475 X10^3/uL (150-400); Red Blood Cell Count 3.03 X10^6/uL (4.5-5.9); Red Cell Distribution Width 15.2 % (11.6-14.8); White Blood Cell Count 19.4 X10^3/uL (4.5-11.0)
[2024-08-02 17:12] LABS: Alanine Aminotransferase 37 IU/L (<50); Albumin Globulin Ratio 1.1 (1.0-2.8); Alkaline Phosphatase 166 U/L (38-126); Aspartate Aminotransferase 36 IU/L (17-59); BUN Creatinine Ratio 23.9 (6-22); Bilirubin Total 0.7 mg/dL (0.2-1.3); Blood Urea Nitrogen 27 mg/dL (9-20); Calcium 9.2 mg/dL (8.4-10.2); Carbon Dioxide 23 mmol/L (22-32); Chloride 105 mmol/L (98-107); Estimated Glomerular Filt Rate > 60 mL/min (>60); Globulin 3.5 g/dL (1.7-4.1); Glucose 127 mg/dL (80-110); HEMOLYSIS < 15 (0-50); Lipase 73 U/L (23-300); Potassium 4.2 mmol/L (3.4-5.1); Sodium 136 mmol/L (137-145); Total Protein 7.5 g/dL (6.3-8.2)
[2024-08-02] MEDS: SODIUM CHLORIDE 0.9% 1,000 ML 125 ML IV (17:57)
[2024-08-02 18:07] LABS: Lactate (Lactic Acid) 3.4 mmol/L (0.7-2.1)
--- NOTE | 2024-08-02 18:41 | ED_ITS ---
HPI - General Adult General Chief complaint: Syncope Stated complaint: Sent by MD; Near Syncope, Low BP Time Seen by Provider: 08/02/24 16:38 Source: patient Mode of arrival: Ambulatory History of Present Illness HPI narrative: 74-year-old male with history of hypertension, anemia presents from home by private vehicle for near syncopal episode that occurred at home prior to arrival. In the last 2 months patient has had double hip replacement. Right hip was per placed on 06/28, left hip was replaced on 07/19. Patient lives at home with his . He states that for the last several months he has felt generally weak and fatigued. On 07/27 he was evaluated in the walk-in clinic for painless weeping wounds on his bilateral lower extremities. These were thought to be related to venous insufficiency and edema and supportive care was advised. On 07/30 patient saw his pcp for increased left hip pain after falling backwards into his recliner.for x-ray at that time was negative for acute changes. Today patient states that he was standing at a counter working on his laptop when he began to feel very faint. He was able to assist himself down to the ground. He states that he was told by his primary care doctor's office that if anything were to happen or change in his condition he should come to the ER for evaluation. His current primary complaint is constipation and low back pain due to the uncomfortable cushioning in the ED stretcher. Related Data Home Medications Medication Instructions Recorded Confirmed lisinopril 20 mg tablet 10 mg PO DAILY 06/26/24 07/30/24 meloxicam 7.5 mg tablet 7.5 mg PO BID 06/28/24 07/30/24 Previous Rx's Medication Instructions Recorded atorvastatin 80 mg tablet (Lipitor) 80 mg PO BEDTIME cholesterol #90 01/29/24 tabs acetaminophen 325 mg tablet 650 mg (2 x 325 mg) PO Q6H #60 tabs 06/29/24 aspirin 81 mg tablet,delayed 81 mg PO BID #60 tabs 06/29/24 release oxycodone 5 mg tablet 5 mg PO Q3H PRN Pain, Severe 06/29/24 (7-10) #30 tabs polyethylene glycol 3350 17 gram 17 gm PO DAILY PRN Constipation 06/29/24 oral powder packet #10 ea cefadroxil 500 mg capsule 500 mg PO BID #20 caps 07/19/24 oxycodone 5 mg tablet 5 mg PO Q4-6H PRN pain (scale 07/19/24 score 4-6) #20 tabs Allergies Allergy/AdvReac Type Severity Reaction Status Date / Time No Known Drug Allergies Allergy Verified 08/02/24 16:47 Patient History Medical History Encounter for subsequent annual wellness visit (AWV) in Medicare patient Venous insufficiency Essential hypertension Mixed hyperlipidemia Surgical History History of total right hip arthroplasty (06/28/24) Status post third molar tooth extraction (~1982) Anesthesia Family History Father Diabetes mellitus Mother Skin cancer Hypertension Sister Parkinson's disease Family/Other Diabetes mellitus Social History household members: spouse Smoking Status: Never smoker alcohol intake: never Smoking Status: Never smoker Substance Use Type: does not use Exam Initial Vital Signs Initial Vital Signs: Vital Signs Temperature 98.5 F 08/02/24 16:31 Pulse Rate 94 H 08/02/24 16:31 Respiratory Rate 16 08/02/24 16:31 Blood Pressure 103/54 L 08/02/24 16:31 Pulse Oximetry 99 08/02/24 16:31 Oxygen Delivery Method Room Air 08/02/24 16:31 Const: Awake, alert, frail, nontoxic appearing Cardiac: regular rate, regular rhythm RESP: unlabored, clear bilaterally, no wheezing GI: Soft, nontender, nondistended MSK: mild erythema without excessive warmth BLE from mid-klein to foot. Scant clear serous drainage present Skin: Warm, Dry, Postopertive dressings clean, dry, intact, nontender Neuro: AO x3, CN II-XII grossly intact, moves all extremities Course Orders Ordered: ED Orders 08/02/24 16:39 EKG-12 Lead Stat 08/02/24 16:50 Complete Blood Count AUTO DIFF Stat Comprehensive Metabolic Panel Stat Lactate (Lactic Acid) Stat Lipase Stat Procalcitonin Stat 08/02/24 17:40 Blood Culture Stat 08/02/24 18:45 Chest [XR chest 1V] Stat 08/02/24 19:36 Consult to COMPUTER NETWORK SUPPORT SPECIALIST - [employer] Department Manager Stat Discontinued Medications Glycerin (Glycerin Supp Adult 1 Supp) 1 each OH NOW ONE Stop: 08/02/24 19:37 Last Admin: 08/02/24 20:08 Dose: Not Given Documented By: ABIDA Sodium Chloride (Normal Saline 0.9%) 1,000 mls @ 125 mls/hr IV CONT REFUGIO Last Admin: 08/02/24 17:57 Dose: 125 mls/hr Documented By: AVE Vital Signs Vital signs: Vital Signs - 8 hr 08/02/24 17:30 08/02/24 17:41 08/02/24 17:41 Pulse Rate 102 H 94 H Respiratory Rate 12 12 Blood Pressure 104/50 L Pulse Oximetry 98 98 Oxygen Delivery Method 08/02/24 17:50 08/02/24 18:00 08/02/24 18:01 Pulse Rate 88 92 H Respiratory Rate 22 22 Blood Pressure 113/53 L Pulse Oximetry Oxygen Delivery Method 08/02/24 18:01 08/02/24 18:30 08/02/24 18:30 Pulse Rate 96 H Respiratory Rate 22 Blood Pressure 105/51 L 104/58 L Pulse Oximetry 97 Oxygen Delivery Method 08/02/24 19:00 08/02/24 19:01 08/02/24 19:01 Pulse Rate 112 H 114 H Respiratory Rate 22 23 Blood Pressure 126/54 L Pulse Oximetry Oxygen Delivery Method 08/02/24 19:30 08/02/24 19:30 08/02/24 20:00 Pulse Rate 113 H Respiratory Rate 20 Blood Pressure 96/52 L 111/55 L Pulse Oximetry Oxygen Delivery Method 08/02/24 20:00 08/02/24 20:03 08/02/24 20:03 Pulse Rate 104 H 102 H Respiratory Rate 15 Blood Pressure 96/50 L Pulse Oximetry 97 96 Oxygen Delivery Method Room Air 08/02/24 20:30 08/02/24 20:31 08/02/24 20:31 Pulse Rate 97 H 94 H Respiratory Rate 23 20 Blood Pressure 118/55 L Pulse Oximetry 94 96 Oxygen Delivery Method Room Air Medical Decision Making Lab Data 08/02/24 16:50 08/02/24 16:50 Labs: Lab Results 08/02/24 08/02/24 Range/Units 16:50 20:01 WBC 19.4 H (4.5-11.0) X10^3/uL RBC 3.03 L (4.5-5.9) X10^6/uL Hgb 8.3 L (13.5-17.5) g/dL Hct 25.4 L (41-53) % MCV 83.7 (80-100) fL MCH 27.4 (26-34) PG MCHC 32.7 (30-36) % RDW 15.2 H (11.6-14.8) % Plt Count 475 H (150-400) X10^3/uL Neut % (Auto) 91.2 H (50-75) % Lymph % (Auto) 3.7 L (25-40) % Green % (Auto) 4.2 (3-14) % Eos % (Auto) 0.2 L (2-4) % Baso % (Auto) 0.7 (0-2) % Neut # (Auto) 85001 H (2536-5465) /uL Lymph # (Auto) 700 L (9452-5522) /uL Green # (Auto) 800 (0-900) /uL Eos # (Auto) 0 (0-450) /uL Baso # (Auto) 100 (0-100) /uL Sodium 136 L (137-145) mmol/L Potassium 4.2 (3.4-5.1) mmol/L Chloride 105 (98-107) mmol/L Carbon Dioxide 23 (22-32) mmol/L BUN 27 H (9-20) mg/dL Creatinine 1.13 (0.66-1.25) mg/dL Estimated GFR > 60 (>60) mL/min BUN/Creatinine Ratio 23.9 H (6-22) Glucose 127 H (80-110) mg/dL Lactate 3.4 H 2.0 (0.7-2.1) mmol/L Calcium 9.2 (8.4-10.2) mg/dL Total Bilirubin 0.7 (0.2-1.3) mg/dL AST 36 (17-59) IU/L ALT 37 (<50) IU/L Alkaline Phosphatase 166 H (38-126) U/L Total Protein 7.5 (6.3-8.2) g/dL Albumin 4.0 (3.5-5.0) g/dL Globulin 3.5 (1.7-4.1) g/dL Albumin/Globulin Ratio 1.1 (1.0-2.8) Lipase 73 (23-300) U/L Procalcitonin 0.104 (<0.5) ng/mL Imaging Data Chest x-ray: Radiologist's Impression: PROCEDURE: XR CHEST 1V INDICATIONS: weakness, poss AMS TECHNIQUE: One view of the chest was acquired. COMPARISON: None. FINDINGS: Surgical changes and devices: None. Lungs and pleura: Lungs are clear. No pleural effusions or pneumothorax. Mediastinum: Mediastinal contours appear normal. Heart size is normal. Bones and chest wall: No suspicious bony lesions. Overlying soft tissues appear unremarkable. IMPRESSION: No acute cardiopulmonary pathology. Dictated by: Jay Beck M.D. on 08/02/2024 at 19:09 Approved by: Jay Beck M.D. on 08/02/2024 at 19:10 ECG Data Attestation: I personally reviewed and interpreted this ECG as follows: Interpretation: Normal sinus rhythm, normal OH, 99 beats per minute. No ST T wave changes MDM Narrative Medical decision making narrative: Patient presenting for near syncopal event that occurred at home prior to arrival. He states it was primary concern is low back pain from the positioning of the ED stretcher and significant constipation. He has been dealing with weakness ever since his surgery, but states that he and his take care of each other at home and he has a neighbor who helps out as well. He did request that social work be contacted about possible home health resources, however our phlebotomist medical lab assistant is not currently in-house. A consult was placed. Laboratory work reviewed, WBC count 19.4, hemoglobin 8.3, platelets 475, sodium 136, potassium 4.2, creatinine 1.13, lactic acid 3.4 (recheck 2.0), procalcitonin 0.104. EKG sinus rhythm without ischemic findings. Hemoglobin is up trending from when last checked, albeit slowly. Patient was denying any bleeding at this time. Bilateral lower extremity wounds do seem to have appearance of venous stasis changes without accepted warmth, tenderness, or fluctuance to suggest cellulitis or ulceration. Leukocytosis of uncertain significance. Lactic acid normalized and negative procalcitonin without obvious source of infection makes septic process seem less likely While in the emergency department the patient received a small amount of IV fluids. He was able to produce a very large bowel movement. Patient subsequently reported feeling significantly better, although his back still hurts from the ED bed, and says that his back pain would resolve with his normal home furniture. He states that he feels well enough considering his recent surgeries and he would like to go home at this time. Patient's lower extremities were dressed by nursing staff. COMPUTER NETWORK SUPPORT SPECIALIST consult in place. ED return precautions discussed. Discharge Plan Departure Patient Disposition: Home Clinical Impression: Near syncope, Anemia, Acute constipation Instructions: DI for Syncope in Adults (Fainting), DI for Constipation Activity Restrictions/Additional Instructions: TAKE A DAILY STOOL SOFTENER TO HELP PREVENT CONSTIPATION. YOUR HEMOGLOBIN SEEMS TO BE GRADUALLY INCREASING FROM WHEN YOU LAST SAW YOUR PRIMARY CARE DOCTOR. OUR SENIOR MECHANICAL DESIGN ENGINEER HAS BEEN CONSULTED AND WE WILL TRY TO REACH OUT TO YOU TO ARRANGE HOME HEALTH CARE RESOURCES. Prescriptions: No Action atorvastatin [Lipitor] 80 mg tablet 80 mg PO BEDTIME Qty: 90 3RF oxycodone 5 mg tablet 5 mg PO Q4-6H PRN (Reason: pain (scale score 4-6)) Qty: 20 0RF cefadroxil 500 mg capsule 500 mg PO BID Qty: 20 0RF lisinopril 20 mg tablet 10 mg PO DAILY meloxicam 7.5 mg tablet 7.5 mg PO BID acetaminophen 325 mg Tablet 650 mg PO Q6H Qty: 60 0RF polyethylene glycol 3350 17 gram Powder In Packet 17 gm PO DAILY PRN (Reason: Constipation) Qty: 10 0RF aspirin 81 mg Tablet,Delayed Release (Dr/Ec) 81 mg PO BID Qty: 60 0RF Patient Comments: Will check with MD when to stop aspirin. oxycodone 5 mg Tablet 5 mg PO Q3H PRN (Reason: Pain, Severe (7-10)) Qty: 30 0RF Referrals: Blaire Rich DO [Primary Care Provider] - Stand Alone Forms: Patient Portal/API/Survey
--- NOTE | 2024-08-02 18:45 | DI.RAD.S_ITS ---
PROCEDURE: XR CHEST 1V INDICATIONS: weakness, poss AMS TECHNIQUE: One view of the chest was acquired. COMPARISON: None. FINDINGS: Surgical changes and devices: None. Lungs and pleura: Lungs are clear. No pleural effusions or pneumothorax. Mediastinum: Mediastinal contours appear normal. Heart size is normal. Bones and chest wall: No suspicious bony lesions. Overlying soft tissues appear unremarkable. IMPRESSION: No acute cardiopulmonary pathology. Dictated by: Jay Beck M.D. on 08/02/2024 at 19:09 Approved by: Jay Beck M.D. on 08/02/2024 at 19:10
--- NOTE | 2024-08-02 19:13 | PC.NURSE ---
Pt has repeated need throughout visit of use of the commode. Refuses all care until he has been transferred. Pt states he is unable to pass stool, Dr Armendariz notified. Has liquid drips of diarrhea to underwear and in commode. Call light is consistently on and staff is there to assist patient.
[2024-08-02 19:19] LABS: Procalcitonin 0.104 ng/mL (<0.5)
[2024-08-02 19:30] LABS: Reflexed Lactate in 2 Hours Y
--- NOTE | 2024-08-02 19:44 | PC.NURSE ---
Pt restless, back and forth between bedside commode and ED stretcher stating unable to get comfortable d/t constipation. Asked pt if the pain was in his butt or belly where patient responded all of the above then placed himself back on the commode.
--- NOTE | 2024-08-02 20:01 | PC.NURSE ---
Repeat lactic acid drawn from existing IV left AC.
--- NOTE | 2024-08-02 20:07 | PC.NURSE ---
Large formed stool at this time. Pt states relief from abd discomfort. Dr. Armendariz informed. Suppository not given at this time.
--- NOTE | 2024-08-02 21:00 | PC.NURSE ---
Bilat lower extremities wrapped with large bulky dressing and wrapped with elastic bandages.
== END 2024-08-02 21:02 | disposition home or self-care (01) ==
PROVIDERS: Emergency Medicine; Emergency Provider Emergency Medicine; PCP Family Medicine
DX: R55 Syncope and collapse (principal); D64.9 Anemia, unspecified; K59.00 Constipation, unspecified
CPT/HCPCS: 36415; 71045; 80053; 83605; 83690; 84145; 85025; 87040; 93005; 93010; 96360; 96361; 99284

== ENCOUNTER → 2024-08-14 13:25 | Outpatient (CLI) | payer MEDICARE, OTHER, SELFPAY ==
[2024-07-22 14:18] VITALS: BMI 30.7
== END ==
PROVIDERS: PCP Family Medicine; Referring Provider Family Medicine; Visit Provider Physician Assistant
DX: L97.811 Non-pressure chronic ulcer of other part of right lower leg limited to breakdown of skin (principal); L97.821 Non-pressure chronic ulcer of other part of left lower leg limited to breakdown of skin; I89.0 Lymphedema, not elsewhere classified; I87.2 Venous insufficiency (chronic) (peripheral); T81.31XA Disruption of external operation (surgical) wound, not elsewhere classified, initial encounter; L98.8 Other specified disorders of the skin and subcutaneous tissue; I10 Essential (primary) hypertension; Z96.641 Presence of right artificial hip joint
CPT/HCPCS: 97597; 97602; 99204

== ENCOUNTER → 2024-08-21 15:18 | Outpatient (CLI) | payer MEDICARE, OTHER, SELFPAY ==
[2024-07-22 14:18] VITALS: BMI 30.7
== END ==
PROVIDERS: PCP Family Medicine; Referring Provider Family Medicine; Visit Provider Surgery
DX: I89.0 Lymphedema, not elsewhere classified (principal); L97.812 Non-pressure chronic ulcer of other part of right lower leg with fat layer exposed; L97.822 Non-pressure chronic ulcer of other part of left lower leg with fat layer exposed; I87.2 Venous insufficiency (chronic) (peripheral); L53.9 Erythematous condition, unspecified; R60.0 Localized edema; T81.89XA Other complications of procedures, not elsewhere classified, initial encounter; L98.8 Other specified disorders of the skin and subcutaneous tissue; S71.001A Unspecified open wound, right hip, initial encounter
CPT/HCPCS: 97597; 97598; 99213

== ENCOUNTER → 2024-09-04 10:03 | Outpatient (CLI) | payer MEDICARE, OTHER, SELFPAY ==
[2024-07-22 14:18] VITALS: BMI 30.7
== END ==
PROVIDERS: PCP Family Medicine; Referring Provider Family Medicine; Visit Provider Surgery
DX: I89.0 Lymphedema, not elsewhere classified (principal); L97.822 Non-pressure chronic ulcer of other part of left lower leg with fat layer exposed; I87.2 Venous insufficiency (chronic) (peripheral); R60.0 Localized edema; L53.9 Erythematous condition, unspecified
CPT/HCPCS: 11042

== ENCOUNTER → 2024-09-12 13:43 | Outpatient (CLI) | payer MEDICARE, OTHER, SELFPAY ==
[2024-07-22 14:18] VITALS: BMI 30.7
== END ==
PROVIDERS: PCP Family Medicine; Referring Provider Family Medicine; Visit Provider Physician Assistant
DX: I89.0 Lymphedema, not elsewhere classified (principal); L97.822 Non-pressure chronic ulcer of other part of left lower leg with fat layer exposed; I87.2 Venous insufficiency (chronic) (peripheral); R60.0 Localized edema; L53.9 Erythematous condition, unspecified
CPT/HCPCS: 11042; 11045; 99214

== ENCOUNTER → 2024-09-16 11:29 | Outpatient (CLI) | payer MEDICARE, OTHER, SELFPAY ==
[2024-07-22 14:18] VITALS: BMI 30.7
== END ==
LOC: WC 11:30
PROVIDERS: PCP Family Medicine; Referring Provider Family Medicine; Visit Provider Surgery
DX: I89.0 Lymphedema, not elsewhere classified (principal); L97.822 Non-pressure chronic ulcer of other part of left lower leg with fat layer exposed; R60.0 Localized edema
CPT/HCPCS: 29581

== ENCOUNTER → 2024-09-19 08:50 | Outpatient (CLI) | payer MEDICARE, OTHER, SELFPAY ==
[2024-07-22 14:18] VITALS: BMI 30.7
== END ==
PROVIDERS: PCP Family Medicine; Referring Provider Family Medicine; Visit Provider Surgery
DX: L97.822 Non-pressure chronic ulcer of other part of left lower leg with fat layer exposed (principal); I89.0 Lymphedema, not elsewhere classified; I87.2 Venous insufficiency (chronic) (peripheral)
CPT/HCPCS: 11042; 99213

== ENCOUNTER → 2024-09-23 11:13 | Outpatient (CLI) | payer MEDICARE, OTHER, SELFPAY ==
[2024-07-22 14:18] VITALS: BMI 30.7
== END ==
PROVIDERS: PCP Family Medicine; Referring Provider Family Medicine; Visit Provider Surgery
DX: I89.0 Lymphedema, not elsewhere classified (principal); L97.822 Non-pressure chronic ulcer of other part of left lower leg with fat layer exposed; L53.9 Erythematous condition, unspecified; R60.0 Localized edema
CPT/HCPCS: 29581

== ENCOUNTER → 2024-09-26 09:32 | Outpatient (CLI) | payer MEDICARE, OTHER, SELFPAY ==
[2024-07-22 14:18] VITALS: BMI 30.7
--- NOTE | 2024-09-26 | OV.WND_ITS ---
"PROGRESS NOTE DETAILS PATIENT NAME: NOLAN ASH. PATIENT NUMBER: [id number] CLINICIAN: LUIS COSTA PATIENT DATE OF : 1950 PHYSICIAN / DRAWSTRING KNOTTER: TRA BOWLING PATIENT SUBJECTIVE CHIEF COMPLAINT THIS INFORMATION WAS OBTAINED FROM THE PATIENT. NO ISSUES ALLERGIES NO KNOWN DRUG ALLERGIES HPI THIS INFORMATION WAS OBTAINED FROM THE PATIENT. THE FOLLOWING HPI ELEMENTS WERE DOCUMENTED FOR THE PATIENT'S WOUND: LOCATION: LLE DURATION: 07/19/24 CONTEXT: LYMPHEDEMA THE PATIENT IS A 74 YEAR OLD MALE WITH PMH VENOUS INSUFFICIENCY, LYMPHEDEMA, HTN, AND HLD WHO RETURNS TODAY FOR FOLLOW UP ULCERS ON LEFT LOWER EXTREMITY. PATIENT IS RECEIVING DRESSING CHANGES WITH ADAPTIC AND HYDROFERA BLUE WITH TWO-LAYER LIGHT COMPRESSION WRAP. HE NOTES HIS LOWER EXTREMITY SWELLING STARTED AFTER HIP REPLACEMENT BUT HAS BEEN STEADILY IMPROVING SINCE SURGERY. HE REPORTS PAIN HAS RESOLVED AND HE HAS NOT HAD ANY SIGNIFICANT DRAINAGE. THE PATIENT HAS NOT HAD ANY FEVER OR CHILLS. THE PATIENT REPORTS A GOOD APPETITE AND DENIES HAVING ANY OTHER RECENT CHANGES IN OVERALL HEALTH. ON EXAM TODAY THE ULCERS ON THE LEFT LOWER EXTREMITY ARE HEALED HOWEVER THERE IS SOME MILD FOLLICULITIS AND HE STILL HAS SOME MILD LOWER EXTREMITY EDEMA. THE PATIENT IS NOT CURRENTLY ON ANY ANTIBIOTIC THERAPY. SH: RETIRED e|tab 08/14/24: SINDHU LEFT 1.33, RIGHT 1.32 MEDICAL HISTORY THIS INFORMATION WAS OBTAINED FROM THE CHART, PATIENT. PATIENT HAS A MEDICAL HISTORY OF: VENOUS INSUFFICIENCY ESSENTIAL HYPERTENSION MIXED HYPERLIPIDEMIA ADDITIONAL INFORMATION DOES PATIENT HAVE A HISTORY OF CANCER? YES? COMPLETE ALL QUESTIONS.: NO SURGICAL HISTORY THIS INFORMATION WAS OBTAINED FROM THE CHART, PATIENT. NOLAN ASH [id number] 1950 PATIENT HAS A SURGICAL HISTORY OF: HISTORY OF TOTAL BILATERAL HIP ARTHROPLASTY- STATUS POST THIRD MOLAR TOOTH EXTRACTION- (WISDOM TEETH) ANESTHESIA- OBJECTIVE VITALS HEIGHT/LENGTH: 70 IN (177.8 CM), WEIGHT: 206.7 LBS (93.95 KGS), BMI: 29.7, TEMPERATURE: 98 ?F (36.67 ?C), PULSE: 62 BPM, RESPIRATORY RATE: 16 BREATHS/MIN, BLOOD PRESSURE: 137/60 MMHG, PULSE OXIMETRY: 100 %. PHYSICAL EXAM CONSTITUTIONAL: VITAL SIGNS REVIEWED AND NOTED. WELL DEVELOPED, WELL NOURISHED, AND IN NO ACUTE DISTRESS. ALERT AND ORIENTED X3. RESPIRATORY: EVEN RESPIRATIONS WITHOUT USE OF ACCESSORY MUSCLES. NO INTERCOASTAL RETRACTIONS NOTED. EVEN AND NON LABORED RESPIRATION. INTEGUMENTARY (HAIR, SKIN): FAINT ERYTHEMA BOTH LOWER EXTREMITIES SCATTERED AREAS OF FOLLICULITIS ON THE LEFT. MILD LYMPHEDEMA BOTH LOWER EXTREMITIES. SEE WOUND ASSESSMENT. NEUROLOGICAL: SENSATION: SYMMETRIC FUNCTION BY INFORMAL OBSERVATION. PSYCHIATRIC: ORIENTATION TO TIME, PLACE AND PERSON: NORMAL AFFECT WITH NORMAL THOUGHT PATTERN. LOWER EXTREMITY ASSESSMENT EDEMA ASSESSMENT: LEFT EXTREMITY: EDEMA IS PRESENT COMPRESSION DEVICE IN USE: YES DEVICE USED CORRECTLY: YES DEVICE IN USE: COBAN II LITE CALF MEASUREMENT 36 CM FROM HEEL WITH LEFT MEASUREMENT OF 36 CM ANKLE MEASUREMENT 5 CM FROM ANKLE WITH LEFT MEASUREMENT OF 23 CM FOOT MEASUREMENT 14 CM FROM HEEL WITH LEFT MEASUREMENT OF 24.5 CM RIGHT EXTREMITY: EDEMA IS PRESENT COMPRESSION DEVICE IN USE: YES DEVICE USED CORRECTLY: YES DEVICE IN USE: TUBIGRIP OR TUBIFAST CALF MEASUREMENT 36 CM FROM HEEL WITH RIGHT MEASUREMENT OF 40.5 CM ANKLE MEASUREMENT 5 CM FROM ANKLE WITH RIGHT MEASUREMENT OF 24.5 CM FOOT MEASUREMENT 14 CM FROM HEEL WITH RIGHT MEASUREMENT OF 24.5 CM VASCULAR ASSESSMENT LEFT EXTREMITY COLORS, HAIR GROWTH, AND CONDITIONS: EXTREMITY COLOR: PIGMENTED HAIR GROWTH ON EXTREMITY: YES TEMPERATURE OF EXTREMITY: COOL CAPILARY REFILL: > 3 SECONDS ERYTHEMA: YES RIGHT EXTREMITY COLORS, HAIR GROWTH, AND CONDITIONS: EXTREMITY COLOR: PIGMENTED HAIR GROWTH ON EXTREMITY: YES TEMPERATURE OF EXTREMITY: COOL CAPILARY REFILL: > 3 SECONDS ERYTHEMA: YES NOLAN ASH [id number] 1950 OFF-LOADING: LEFT OFF-LOADING DEVICE IN USE: NO RIGHT OFF-LOADING DEVICE IN USE: NO WOUND ASSESSMENT(S) WOUND #2 LEFT, MEDIAL LEG - LOWER IS A CHRONIC FULL THICKNESS LYMPHEDEMA ACQUIRED ON 07/19/2024 AND HAS RECEIVED AN OUTCOME OF HEALED - NO NEW WOUND(S). INITIAL WOUND ENCOUNTER MEASUREMENTS ARE 0CM LENGTH X 0CM WIDTH WITH NO MEASURABLE DEPTH, WITH AN AREA OF 0 SQ CM. NO TUNNELING HAS BEEN NOTED. NO SINUS TRACT HAS BEEN NOTED. NO UNDERMINING HAS BEEN NOTED. THERE WAS NO DRAINAGE NOTED. THE PATIENT REPORTS A WOUND PAIN OF LEVEL 0/10. THE WOUND MARGIN IS EPITHELIAL RESURFACING WOUND BED HAS NO, GRANULATION, NO SLOUGH, NO ESCHAR, YES EPITHELIALIZATION. THE PERIWOUND SKIN EXHIBITED EDEMA AND ERYTHEMA. THE PERIWOUND SKIN DID NOT EXHIBIT BRAWNY INDURATION, EXCORIATION, INDURATION, CALLUS, CREPITUS, FLUCTUANCE, RASH, MACERATION, ATROPHIE POOJA, CYANOSIS, ECCHYMOSIS, HEMOSIDEROSIS, PALLOR AND RUBOR. THE PERIWOUND SKIN WAS NOT FRIABLE, DRY/SCALY AND MOIST. THE TEMPERATURE OF THE PERIWOUND SKIN IS COOL. PERIWOUND SKIN DOES NOT EXHIBIT SIGNS OR SYMPTOMS OF INFECTION. LOCAL PULSE IS DOPPLER. ADDITIONAL INFORMATION SINDHU/VASCULAR COMPLETED?: YES: 08/14/24 RESULTS?: L: 1.33 WOUND #4 LEFT LEG IS AN ACUTE FULL THICKNESS LYMPHEDEMA ACQUIRED ON 09/09/2024 AND HAS RECEIVED AN OUTCOME OF HEALED - NO NEW WOUND(S). INITIAL WOUND ENCOUNTER MEASUREMENTS ARE 0CM LENGTH X 0CM WIDTH WITH NO MEASURABLE DEPTH, WITH AN AREA OF 0 SQ CM. NO TUNNELING HAS BEEN NOTED. NO SINUS TRACT HAS BEEN NOTED. NO UNDERMINING HAS BEEN NOTED. THERE WAS NO DRAINAGE NOTED. THE PATIENT REPORTS A WOUND PAIN OF LEVEL 0/10. THE WOUND MARGIN IS EPITHELIAL RESURFACING WOUND BED HAS NO, GRANULATION, NO SLOUGH, NO ESCHAR, YES EPITHELIALIZATION. THE PERIWOUND SKIN EXHIBITED EDEMA. THE PERIWOUND SKIN DID NOT EXHIBIT BRAWNY INDURATION, EXCORIATION, INDURATION, CALLUS, CREPITUS, FLUCTUANCE, RASH, MACERATION, ATROPHIE POOJA, CYANOSIS, ECCHYMOSIS, ERYTHEMA, HEMOSIDEROSIS, PALLOR AND RUBOR. THE PERIWOUND SKIN WAS NOT FRIABLE, DRY/SCALY AND MOIST. THE TEMPERATURE OF THE PERIWOUND SKIN IS WNL. PERIWOUND SKIN DOES NOT EXHIBIT SIGNS OR SYMPTOMS OF INFECTION. LOCAL PULSE IS PALPABLE. ASSESSMENT ACTIVE PROBLEMS ICD-10 (ENCOUNTER DIAGNOSIS) I89.0 - LYMPHEDEMA, NOT ELSEWHERE CLASSIFIED (ENCOUNTER DIAGNOSIS) I87.2 - VENOUS INSUFFICIENCY (CHRONIC) (PERIPHERAL) (ENCOUNTER DIAGNOSIS) L97.811 - NON-PRESSURE CHRONIC ULCER OF OTHER PART OF RIGHT LOWER LEG LIMITED TO BREAKDOWN OF SKIN (ENCOUNTER DIAGNOSIS) L97.821 - NON-PRESSURE CHRONIC ULCER OF OTHER PART OF LEFT LOWER LEG LIMITED TO BREAKDOWN OF SKIN (ENCOUNTER DIAGNOSIS) S71.001D - UNSPECIFIED OPEN WOUND, RIGHT HIP, SUBSEQUENT ENCOUNTER (ENCOUNTER DIAGNOSIS) T81.31XD - DISRUPTION OF EXTERNAL OPERATION (SURGICAL) WOUND, NOT ELSEWHERE CLASSIFIED, SUBSEQUENT ENCOUNTER (ENCOUNTER DIAGNOSIS) L97.822 - NON-PRESSURE CHRONIC ULCER OF OTHER PART OF LEFT LOWER LEG WITH FAT LAYER EXPOSED GENERAL NOTES ULCER LEFT LOWER EXTREMITY HEALED THE FOLLOWING FACTORS HAVE BEEN IDENTIFIED THAT MAY AFFECT WOUND HEALING: DEVITALIZED TISSUE NOLAN ASH [id number] 1950 BIOFILM EDEMA RECENT SURGERY GOALS: REMOVE DEVITALIZED TISSUE REMOVE AND PREVENT BIOFILM PREVENT INFECTION REDUCE SWELLING WOUND CLOSURE PLAN: DISCONTINUE DRESSING CHANGES, CONTINUE TWO-LAYER LIGHT COMPRESSION UNTIL VELCRO WRAPS CAN BE OBTAINED. THE PATIENT ADVISED TO KEEP LEGS ELEVATED, FOLLOW UP IN 1 WEEK FOR SURVEILLANCE. PROCEDURES A MULTILAYER COMPRESSION PROCEDURE WAS PERFORMED FOR THE LOWER LEFT EXTREMITY BY JENNIFER COFFEY MA. A 2 LAYER COBAN WRAP WAS APPLIED. THE PROCEDURE WAS TOLERATED WELL WITH A PAIN LEVEL OF 0 THROUGHOUT AND A PAIN LEVEL OF 0 FOLLOWING THE PROCEDURE. GENERAL NOTES COBAN 2 LITE WRAPS PLAN ADDITIONAL ORDERS: HYGIENE MAY SHOWER WITH WOUND PROTECTED, USING A CAST PROTECTOR OR PLASTIC BAG AND TAPE COMPRESSION/EDEMA CONTROL ELEVATION OF LEG(S) ABOVE THE LEVEL OF THE HEART WHEN SITTING AVOID PROLONGED STANDING IN ONE PLACE MULTI LAYER WRAP - DO NOT GET LEG(S) WITH COMPRESSION WRAP WET. IF WRAPS ARE TOO TIGHT CALL THE WOUND CARE CENTER OR REMOVE IF YOU ARE UNABLE TO REACH THE CENTER. PLEASE REMOVE WRAPS FOR NUMBNESS, TINGLING, PAIN IN LEGS OR COLOR CHANGES IN TOES AND CALL THE CLINIC THE SAME DAY. IF SYMPTOMS DO NOT RESOLVE AFTER REMOVING WRAPS PLEASE GO TO THE ER FOR EVALUATION. LOCAL PHARMACIES CARRY PLASTIC CAST PROTECTORS THAT MAY BE USED FOR PROTECTION WHILE SHOWERING. - COBAN 2 LAYER LITE COMPRESSION WRAP SYSTEM TO LEFT LEG. KNEE-HIGH GRADIENT COMPRESSION STOCKINGS - TETRA COTTON PULLER SIZE E TO RIGHT LEG. DIETARY SUPPLEMENT WITH - ADDITIONAL 30 GRAM PROTEIN DRINKS TWICE DAILY. OTHER INSTRUCTIONS: - WILL ORDER COMPRESSION WRAPS FOR AT HOME. PLEASE BRING TO NEXT APPT FOLLOW-UP APPOINTMENTS RETURN APPOINTMENT - ONE WEEK OTHER INFORMATION: IF YOU DEVELOP FEVER, CHILLS, INCREASED PAIN, DRAINAGE, REDNESS OR SWELLING PLEASE CALL OUR OFFICE. IF AFTER HOURS, RESPOND TO THE ER. SHOULD YOU EXPERIENCE ANY SIGNIFICANT CHANGES IN YOUR WOUND(S) OR HAVE ANY QUESTIONS REGARDING YOUR HOME CARE INSTRUCTIONS PLEASE CONTACT THE WOUND CENTER @ [phone]. IF AFTER HOURS, CONTACT YOUR PRIMARY CARE PHYSICIAN OR GO TO THE HOSPITAL EMERGENCY ROOM. PHYSICIAN REVIEW: DISCUSSED THE PLAN OF CARE @ BEDSIDE WITH - THE PATIENT REVIEWED HOSPITAL RECORDS. I, THE PHYSICIAN, HAVE REVIEWED THE ORDERS SCRIBED BY THE CENTER RN'S AND AGREE. SCRIBING ATTESTATION I ATTEST, THE NURSE, THAT I SCRIBED THESE ORDERS FOR THE PHYSICIAN. NOLAN ASH [id number] 1950 PLAN OF CARE: 01. ENSURE/ESTABLISH OPTIMAL BLOOD FLOW : - COMPLETE LOWER EXTREMITY ASSESSMENT STATUS: CONTINUED DATE: 09/19/2024 - PERFORM NON-INVASIVE VASCULAR TESTING (I.E. SINDHU) AND DOCUMENT FINDINGS. CONSIDER REPEATING WHEN WOUND HEALING <40% AFTER 30 DAYS OF WOUND CARE. STATUS: COMPLETED DATE: 08/14/2024 02. ASSESS FOR/TREAT INFECTION : - EVALUATE FOR SIGNS AND SYMPTOMS OF INFECTION AND DOCUMENT FINDINGS. STATUS: CONTINUED DATE: 09/19/2024 03. DEBRIDE WEEKLY OR MORE OFTEN PRN : - EVALUATE PATIENT IN CENTER WEEKLY TO ASSESS WOUND BED AND MARGINS FOR NEED FOR DEBRIDEMENT. STATUS: CONTINUED DATE: 09/19/2024 - DEBRIDEMENT BY ANY METHOD TO REMOVE DEVITALIZED/NECROTIC TISSUE TO PROMOTE HEALING AND PREVENT FURTHER COMPLICATIONS. GOAL IS TO STIMULATE AND/OR MAINTAIN ACUTE PHASE OF WOUND HEALING BY REDUCING BACTERIAL BURDEN AND DEVITALIZED/NON-VIABLE TISSUE. STATUS: CONTINUED DATE: 09/19/2024 04. OPTIMIZE GLUCOSE CONTROL AND NUTRITION : - REVIEWED, NOT APPLICABLE 05. OFFLOADING PLAN : - REVIEWED, NOT APPLICABLE 06. OPTIMIZE HOST FACTORS: - ASSESS AND REVIEW PATIENT HISTORY FOR WOUND ETIOLOGY, CO-MORBID CONDITIONS, MEDICATION REGIME, AND SMOKING HISTORY. STATUS: CONTINUED DATE: 09/19/2024 07. DRESSING SELECTION : - EVALUATE FOR DRESSING-RELATED FACTORS, SUCH AVAILABILITY, WEAR TIME, ADAPTABILITY AND USE TO BETTER OPTIMIZE WOUND HEALING AND PATIENT COMPLIANCE. STATUS: COMPLETED DATE: 09/26/2024 08. ADVANCED MODALITIES : - REVIEWED, NOT APPLICABLE 09. FALL PREVENTION : - COMPLETE FALL ASSESSMENT. STATUS: COMPLETED DATE: 08/14/2024 10. PAIN MANAGEMENT : - COMPLETE PAIN ASSESSMENT STATUS: COMPLETED DATE: 08/14/2024 11. MEASURABLE GOALS FOR WOUND HEALING AND/OR HYPERBARIC OXYGEN THERAPY : - WOUND CLOSURE STATUS: COMPLETED DATE: 09/26/2024 - REDUCE EDEMA STATUS: CONTINUED DATE: 09/19/2024 12. DURATION/FREQUENCY OF WOUND CARE VISITS : - 1X WEEKLY FOR 30 DAYS STATUS: CONTINUED DATE: 09/26/2024 ELECTRONIC SIGNATURE(S) SIGNED BY: DATE: NOLAN ASH [id number] 1950 TRA BOWLING MD 09/26/2024 15:29:56 (PT) ENTERED BY: TRA BOWLING MD ON 09/26/2024 11:26:15 (PT) NOLAN ASH [id number] 1950"
== END ==
PROVIDERS: PCP Family Medicine; Referring Provider Family Medicine; Visit Provider Surgery
DX: I89.0 Lymphedema, not elsewhere classified (principal); I87.2 Venous insufficiency (chronic) (peripheral)
CPT/HCPCS: 29581; 99213

== ENCOUNTER → 2024-10-02 09:32 | Outpatient (CLI) | payer MEDICARE, OTHER, SELFPAY ==
[2024-07-22 14:18] VITALS: BMI 30.7
== END ==
LOC: WC 09:34
PROVIDERS: PCP Family Medicine; Referring Provider Family Medicine; Visit Provider Surgery
DX: I89.0 Lymphedema, not elsewhere classified (principal); I87.2 Venous insufficiency (chronic) (peripheral); R60.0 Localized edema
CPT/HCPCS: 99211; 99213

== ENCOUNTER → 2024-10-09 09:14 | Outpatient (CLI) | payer MEDICARE, OTHER, SELFPAY ==
[2024-07-22 14:18] VITALS: BMI 30.7
== END ==
PROVIDERS: PCP Family Medicine; Referring Provider Family Medicine; Visit Provider Surgery
DX: I89.0 Lymphedema, not elsewhere classified (principal)
CPT/HCPCS: 99211

== ENCOUNTER → 2024-11-20 10:50 | Outpatient (CLI) | payer MEDICARE, OTHER, SELFPAY ==
[2024-07-22 14:18] VITALS: BMI 30.7
[2024-11-20 11:20] LABS: Hematocrit 36.6 % (41-53); Hemoglobin 12.1 g/dL (13.5-17.5); Mean Corpuscular HGB Conc 33.2 % (30-36); Mean Corpuscular Hemoglobin 25.2 PG (26-34); Mean Corpuscular Volume 75.9 fL (80-100); Platelet Count 230 X10^3/uL (150-400); Red Blood Cell Count 4.82 X10^6/uL (4.5-5.9); Red Cell Distribution Width 19.9 % (11.6-14.8); White Blood Cell Count 6.3 X10^3/uL (4.5-11.0)
[2024-11-20 11:35] LABS: Neutrophils Absolute Manual 3717 /uL (3000-5900); Total Cells Counted 100
[2024-11-20 11:36] LABS: Anisocytosis 1+; Microcytosis 1+; Ovalocytes 1+
[2024-11-20 11:51] LABS: Blood Urea Nitrogen 18 mg/dL (9-20); Calcium 9.2 mg/dL (8.4-10.2); Chloride 103 mmol/L (98-107); Estimated Glomerular Filt Rate > 60 mL/min (>60); Glucose 97 mg/dL (80-110); HEMOLYSIS < 15 (0-50); Potassium 3.9 mmol/L (3.4-5.1); Sodium 140 mmol/L (137-145)
[2024-11-20 11:52] LABS: Carbon Dioxide 30 mmol/L (22-32)
== END ==
PROVIDERS: PCP Family Medicine; Referring Provider Family Medicine; Visit Provider Family Medicine
DX: Z96.649 Presence of unspecified artificial hip joint (principal); D64.9 Anemia, unspecified
CPT/HCPCS: 36415; 80048; 85025

== ENCOUNTER → 2025-03-18 08:53 | Outpatient (CLI) | payer MEDICARE, OTHER, SELFPAY ==
[2024-07-22 14:18] VITALS: BMI 30.7
[2025-03-18 09:20] LABS: Add Manual Diff / Slide Review NO; Hematocrit 38.2 % (41-53); Hemoglobin 13.1 g/dL (13.5-17.5); Lymphocytes Absolute Auto 1200 /uL (1100-4500); Mean Corpuscular HGB Conc 34.4 % (30-36); Mean Corpuscular Hemoglobin 29.8 PG (26-34); Mean Corpuscular Volume 86.8 fL (80-100); Platelet Count 191 X10^3/uL (150-400)
[2025-03-18 09:29] LABS: Hemoglobin A1C% w Est Avg Glu 5.2 % (4.0-6.0)
[2025-03-18 09:42] LABS: HEMOLYSIS < 15 (0-50); Iron 117 ug/dL (49-181)
[2025-03-18 09:43] LABS: Albumin 4.5 g/dL (3.5-5.0); Blood Urea Nitrogen 20 mg/dL (9-20); Calcium 9.5 mg/dL (8.4-10.2); Carbon Dioxide 28 mmol/L (22-32); Chloride 103 mmol/L (98-107); Estimated Glomerular Filt Rate > 60 mL/min (>60); Glucose 90 mg/dL (70-99); HEMOLYSIS < 15 (0-50); Potassium 4.2 mmol/L (3.4-5.1); Sodium 139 mmol/L (137-145)
[2025-03-18 09:52] LABS: Prealbumin 27.0 mg/dL (17.6-36.0)
[2025-03-18 09:54] LABS: Percent Iron Saturation 35 % (20-50); Total Iron Binding Capacity 339 ug/dL (261-462); Transferrin 272 mg/dL (206-381)
[2025-03-18 09:59] LABS: Vitamin D 25 Hydroxy (D3) 50.8 ng/mL (30.0-100.0)
[2025-03-18 10:18] LABS: Ferritin 58 ng/mL (18-464)
== END ==
PROVIDERS: PCP Family Medicine; Referring Provider Orthopaedic Surgery Adult Reconstructive Orthopaedic Surgery; Visit Provider Orthopaedic Surgery Adult Reconstructive Orthopaedic Surgery
DX: D50.9 Iron deficiency anemia, unspecified (principal); E55.9 Vitamin D deficiency, unspecified; E11.9 Type 2 diabetes mellitus without complications
CPT/HCPCS: 36415; 80048; 82040; 82306; 82728; 83036; 83540; 83550; 84134; 85025

== ENCOUNTER 2025-06-23 06:34 | Day surgery (SDC) | payer MEDICARE, OTHER, SELFPAY ==
[2025-05-05 16:44] VITALS: BMI 30.7
[2025-06-19 13:23] VITALS: BMI 30.4
[2025-06-23] VITALS (7 sets, daily range): BP systolic 140–159; BP diastolic 65–78; PULSE 56–66; RESP 15–24; TEMP 36.2–36.9; O2SAT 97–100; BMI 28.8
[2025-06-23] MEDS: ACETAMINOPHEN 325 MG TABLET 975 MG PO (07:16)
[2025-06-23] MEDS: LACTATED RINGERS 1,000 ML 42 ML IV (07:17)
--- NOTE | 2025-06-23 07:43 | PM.PREOP ---
Pre-operative Note Interval Note History & Physical reviewed/Exam performed by Physician: Yes Changes to H&P: No
--- NOTE | 2025-06-23 07:59 | PM.OP.1 ---
Operative Date/Time/Diagnoses Date of procedure: 06/23/25 Time of procedure: 07:45 Pre-op diagnosis: Arthrofibrosis of right knee Post-op diagnosis: same Procedure & Clinicians Procedure: Manipulation under anesthesia of right knee Same procedure(s) as scheduled: Yes Surgeon: Jay Jay Howard Assisted?: Yes Electron Gun Assembler: Peyton Patel Anesthesia Type: Sedation Operative Notes Findings: Right knee stiffness Applied: none Estimated Blood Loss (mL): 0 Tourniquet time (min): 0 Procedure in detail: This 75-year-old male patient underwent a right total knee arthroplasty me about 6 weeks ago. He has unfortunately had a very difficult time engaging with physical therapy. His has worsening dementia and the entirety of his focus has been her. This is made it challenging for him to engage with the range of motion exercises for his knee. I saw him and noted significant stiffness and recommended we returned to the operating room for a manipulation under anesthesia. He was marked and consented for this. I discussed the risks and benefits of this with him in detail. He was brought back to the operating room and anesthesia was induced. He was transferred to an operating table. A time-out procedure was performed. I initially noted significant stiffness in both extension and flexion. Placed my ear on the thigh in order to listen for the break-up of scar tissue and bent the knee against resistance. I was able to hear scar break-up throughout this process. After manipulating the knee flexion was noted be significantly improved. See the photo below for a before and after of this. I did also pushed to gain some extension and was able to make some small improvements there. He will DC home from the PACU. He is going to resume physical therapy tomorrow morning. Complications: none Post-operative Condition: stable Disposition: PACU
[2025-06-23] MEDS: KETOROLAC 30 MG/ML VIAL 15 MG INJ (08:27)
== END 2025-06-23 08:55 | disposition home or self-care (01) ==
PROVIDERS: PCP Family Medicine; Referring Provider Orthopaedic Surgery Adult Reconstructive Orthopaedic Surgery; Visit Provider Orthopaedic Surgery Adult Reconstructive Orthopaedic Surgery
PROC: (CPT 27599; principal; 2025-06-23 07:45)
DX: T84.82XA Fibrosis due to internal orthopedic prosthetic devices, implants and grafts, initial encounter (principal)
CPT/HCPCS: 27599; 82962; J1100; J1885; J2405; J2704; J3010; J7120